=== PATIENT | male | born 1995 | race Caucasian/White ===

== ENCOUNTER 2017-03-24 22:30 | Emergency (ER) | payer SELFPAY ==
[~2017-03-24] VITALS: Ht 180.3 cm; Wt 99.8 kg
[~2017-03-24 22:30] MED LIST: ALBUTEROL SULF8.5 GM INH; FLOVENT DISKUS50 MCG INH; KEFLEX500 MG PO; PREDNISONE20 MG PO
[2017-03-24] MEDS ORDERED: IBUPROFEN IB200 MG PO (22:50)
[2017-03-24] MEDS ORDERED: K-TAB ER20 MEQ PO (22:51)
[2017-03-25] MEDS ORDERED: ZOFRAN ODT4 MG PO (00:52)
[2017-03-25] MEDS ORDERED: PROVENTIL HFA6.7 GM INH (00:55)
== END 2017-03-25 01:11 | disposition home or self-care (01) ==
LOC: ED 22:30
DX: R10.12 Left upper quadrant pain (principal); R10.32 Left lower quadrant pain; J45.909 Unspecified asthma, uncomplicated; I10 Essential (primary) hypertension; Z90.49 Acquired absence of other specified parts of digestive tract; Z88.2 Allergy status to sulfonamides; Z88.5 Allergy status to narcotic agent; Z79.899 Other long term (current) drug therapy
CPT/HCPCS: 74177; 80053; 81001; 83690; 85025; 96361; 96374; 96375; 99284; J2405; J2550; J7030; Q9967

== ENCOUNTER 2020-05-21 23:25 | Emergency (ER) | payer OTHER ==
[~2020-05-21] VITALS: Ht 180.3 cm; Wt 99.8 kg
[~2020-05-21 23:25] MED LIST changes: +IBUPROFEN IB200 MG PO; +K-TAB ER20 MEQ PO; +PROVENTIL HFA6.7 GM INH; +ZOFRAN ODT4 MG PO
[2020-05-22] MEDS ORDERED: LIDODERM1 EACH TOP (01:44)
[2020-05-22] MEDS ORDERED: IBU600 MG PO (01:44)
[2020-05-22] MEDS ORDERED: ONDANSETRON ODT4 MG PO (01:44)
[2020-05-22] MEDS ORDERED: MAPAP500 MG PO (01:44)
== END 2020-05-22 02:04 | disposition home or self-care (01) ==
LOC: ED 23:25
DX: R10.9 Unspecified abdominal pain (principal); R11.2 Nausea with vomiting, unspecified; J45.909 Unspecified asthma, uncomplicated; I10 Essential (primary) hypertension; Z87.891 Personal history of nicotine dependence; Z88.2 Allergy status to sulfonamides; Z88.5 Allergy status to narcotic agent; Z79.899 Other long term (current) drug therapy
CPT/HCPCS: 80053; 81001; 83690; 85025; 96374; 96375; 99284-25; A9270; J1885; J2405; J7121

== ENCOUNTER 2020-06-22 18:10 | Emergency (ER) | payer OTHER ==
[~2020-06-22] VITALS: Ht 180.3 cm; Wt 88.4 kg
[~2020-06-22 18:10] MED LIST changes: +IBU600 MG PO; +LIDODERM1 EACH TOP; +MAPAP500 MG PO; +ONDANSETRON ODT4 MG PO
--- OUTSIDE RECORDS SUMMARY | 2020-06-22 18:14 | XMS ---
PreManage Notification: MAXIMINO HYDE Security Crossing [place]man Events No recent Security Events currently on file CRITERIA MET - [facility] - 2 Visits in 30 Days CARE PROVIDERS There are no care providers on record at this time. Imani has no Care Guidelines for this patient. Yulisa VISIT COUNT (12 MO.) 1 [facility] [place] 3 [facility] TOTAL 4 NOTE: Visits indicate total known visits. ED/C VISIT TRACKING (12 MO.) 06/22/2020 18:11 [facility] [place] TYPE: Emergency COMPLAINT: - WEAKNESS [facility]2020 [facility] DIAGNOSES: - Other chronic pain - Other symptoms and signs involving the musculoskeletal system - Lumbago with sciatica, left side - Back Pain - r/o cuada equina 05/23/2020 07:44 [facility] Orta TYPE: Emergency COMPLAINT: - LOWER BACK PAIN DIAGNOSES: - Allergy status to narcotic agent - Allergy status to sulfonamides - Low back pain - Other symptoms and signs involving the nervous system - Unspecified asthma, uncomplicated - Muscle spasm of back - Essential (primary) hypertension - Other longterm (current) drug therapy - Personal history of nicotine dependence 05/21/2020 23:27 [facility] Or[facility] TYPE: Emergency COMPLAINT: - CHILLS,VOMITING,LT SIDE BACK PAIN DIAGNOSES: - Unspecified asthma, uncomplicated - Personal history of nicotine dependence - Nausea with vomiting, unspecified - Allergy status to sulfonamides - Essential (primary) hypertension - Unspecified abdominal pain - Other longterm (current) drug therapy - Allergy status to narcotic agent INPATIENT VISIT TRACKING (12 MO.) 05/28/2020 05:43 [facility] TYPE: Neurology DIAGNOSES: 22023. Other symptoms and signs involving the musculoskeletal system 69737. Lt LE paresthesia 88070. Other symptoms and signs involving the musculoskeletal system 19193. Difficulty in walking, not elsewhere classified 05/23/2020 12:26 [facility] [place] TYPE: Medical Surgical DIAGNOSES: - Lumbago with sciatica, left side - Other chronic pain - Other symptoms and signs involving the musculoskeletal system [email or web address]
== END 2020-06-22 22:50 | disposition home or self-care (01) ==
LOC: ED 18:10
DX: E86.0 Dehydration (principal); R29.90 Unspecified symptoms and signs involving the nervous system; J45.909 Unspecified asthma, uncomplicated; I10 Essential (primary) hypertension; Z88.2 Allergy status to sulfonamides; Z88.5 Allergy status to narcotic agent
CPT/HCPCS: 51798; 80053; 81001; 83735; 85025; 99284-25; J7030

== ENCOUNTER 2020-06-29 11:44 | Inpatient (IN) | payer OTHER ==
[~2020-06-29] VITALS: Ht 180.3 cm; Wt 84.0 kg
--- OUTSIDE RECORDS SUMMARY | 2020-06-29 11:46 | XMS ---
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 Care History Medical/Surgical 06/23/2020 [facility] - [facility] CALLED PATIENT-PATIENT DOES NOT HAVE A PCP LISTED- - PHONE NUMBER LISTED WENT STRAIGHT TO VOICEMAIL-LEFT A MESSAGE. Yulisa VISIT COUNT (12 MO.) [address] [facility]ines 4 [facility] NOTE: Visits indicate total known visits. ED/UCC VISIT TRACKING (12 MO.) 06/29/2020 11:45 [facility] Orta TYPE: Emergency COMPLAINT: - SWALLOWING PROBLEM 06/22/2020 18:11 [facility] TYPE: Emergency COMPLAINT: - WEAKNESS DIAGNOSES: - Essential (primary) hypertension - Weakness - Allergy status to narcotic agent - Unspecified asthma, uncomplicated - Dehydration - Unspecified symptoms and signs involving the nervous system - Allergy status to sulfonamides 05/23/2020 12:26 [facility] Francheska [place]IT[place] TYPE: Emergency DIAGNOSES: - Other chronic pain - Other symptoms and signs involving the musculoskeletal system - Lumbago with sciatica, left side - Back Pain - r/o tobin panchalina 05/23/2020 07:44 [facility] [place] TYPE: Emergency COMPLAINT: - LOWER BACK PAIN DIAGNOSES: - Allergy status to narcotic agent - Allergy status to sulfonamides - Low back pain - Other symptoms and signs involving the nervous system - Unspecified asthma, uncomplicated - Muscle spasm of back - Allergy status to narcotic agent - Essential (primary) hypertension - Other mcfp (current) drug therapy - Allergy status to sulfonamides - Personal history of nicotine dependence 05/21/2020 23:27 [facility] [place] TYPE: Emergency COMPLAINT: - CHILLS,VOMITING,LT SIDE BACK PAIN DIAGNOSES: - Unspecified asthma, uncomplicated - Personal history of nicotine dependence - Nausea with vomiting, unspecified - Allergy status to sulfonamides - Essential (primary) hypertension - Unspecified abdominal pain - Other rat exterminator (current) drug therapy - Allergy status to narcotic agent - Allergy status to sulfonamides - Allergy status to narcotic agent INPATIENT VISIT TRACKING (12 MO.) 05/28/2020 05:43 [facility] TYPE: Neurology DIAGNOSES: 10592. Other symptoms and signs involving the musculoskeletal system 16778. Lt LE paresthesia 10941. Other symptoms and signs involving the musculoskeletal system 82353. Difficulty in walking, not elsewhere classified [facility]/23/2020 12[facility] DIAGNOSES: - Lumbago with sciatica, left side - Other chronic pain - Other symptoms and signs involving the musculoskeletal system [email or web address]
--- NOTE | 2020-06-29 16:03 | NUR ---
New admit to the floor. Patient arrived alert and oriented x4. Patient on room air, respirations even and non labored. Patient has no distress noted. Patient's VSS. Unable to assess lower ext skin integrity; pt declined to removed pants. Water provided. Pt updated to plan of care. Call light within reach.
--- NOTE | 2020-06-29 18:33 | NUR ---
Mom at bedside visiting with patient. Patient denies needs. Personal supplies and call light within reach. IV fluids infusing without difficulty.
--- NOTE | 2020-06-29 19:04 | NUR ---
PATIENT IN BED, MOM AT BEDSIDE. NO VOID, RN NOTIFIED. BLADDER SCAN DONE UPON RN REQUEST. 626 mL ON SCAN, RN NOTIFIED. VITALS AND I&O'S CHARTED. CALL LIGHT IN REACH. NO FURTHER NEEDS AT THIS TIME.
--- NOTE | 2020-06-29 19:15 | NUR ---
RECEIVED REPORT FROM MARILYNN VELASCO. pt RESTING IN BED WITH MOTHER, CASEY, AT BEDSIDE. pt HAS FLAT AFFECT. DISCUSSED IMPORTANCE OF HYDRATION, ORAL CARE, AND VOIDING. pt VERBALIZED UNDERSTANDING. ANSWERED SEVERAL QUESTIONS FROM MOTHER AND pt. CALL LIGHT WITHIN REACH. WHITEBOARD UPDATED.
--- NOTE | 2020-06-29 19:18 | NUR ---
Dr. Rice made aware that patient has not yet voided on Med-Surg. Patient denies sensation to void at this time. Bladder scan noted to be 626ml. Orders obtained to continue to monitor urinary retention/output and ensure ordered labs are completed here at 8am. labs in place at this time and oncoming RN made aware of plan of care.
--- NOTE | 2020-06-29 19:20 | NUR ---
CHARGE NURSE REPORT RECEIVED. PT IN ROOM WITH FEMALE FRIEND.
--- NOTE | 2020-06-29 19:30 | NUR ---
SPOKE WITH pt AND MOTHER ABOUT IMAGING AND LABS SCHEDULED FOR 1999. ENCOURAGED pt TO VOID. DISCUSSED IMPORTANCE OF PREVENTING BLADDER DAMAGE. pt VERBALIZED UNDERSTANDING. ALL QUESTIONS ANSWERED. MOTHER AT BEDSIDE. CALL LIGHT WITHIN REACH.
--- NOTE | 2020-06-29 19:58 | NUR ---
PT CALLED, WANTED TO KNOW IF HIS FEMALE FRIEND COULD GO TO THE ED AND GET A SODA. PERMISSION GRANTED. NO OTHER NEEDS. AWAITING LABS TO BE DRAWN.
--- NOTE | 2020-06-29 20:28 | NUR ---
LAB INTO DRAW, DIFFICULT LAB DRAW. AFTER DRAW pt UP TO VOID, CALL LIGHT WITHIN REACH. MOTHER AT BEDSIDE.
--- NOTE | 2020-06-29 20:30 | NUR ---
ASSESSMENT DONE. pt HAS A FLAT AFFECT, POLITE. ASKS APPROPRIATE QUESTIONS. pt STATED HE WAS ABLE TO VOID IN THE MORNING BUT WHEN PRESSED FOR DETAILS STATED "I'M NOT SURE, YOU WOULD HAVE TO ASK MY GIRLFRIEND." DENIES FEELING CONFUSED OR FORGETFUL. LUNG SOUNDS CLEAR, HR REGULAR AND TACHY. BOWEL TONES HYPOACTIVE. STEADY ON HIS FEET. HAS SOME WEAKNESS IN LEFT LEG COMPARED TO RIGHT LEG. REPORTS "MY STOMACH FEELS FULL, I FEEL LIKE THERE IS A LUMP IN MY THROAT STOPPING ME FROM SWALLOWING." REPORTS THAT FOOD SOUNDS GOOD AND TASTES NORMAL BUT DOES NOT GO DOWN.
--- NOTE | 2020-06-29 21:09 | NUR ---
BLADDER SCAN DONE FOR 689ML. pt DENIES THE URGE TO VOID AT THIS TIME. MOTHER AT BEDSIDE. CALL LIGHT WITHIN REACH.
--- NOTE | 2020-06-29 21:39 | NUR ---
DR PEREZ NOTIFIED OF THE URINE OUTPUT, INABILITY TO VOID DESPITE SEVERAL ATTEMPTS. BLADDER SCAN AT 2100 PER PT PRIMARY RN, WAS "689". DR PEREZ WOULD LIKE TO BE NOTIFIED IF THE BLADDER SCAN IS 1,000 CC OR MORE.
--- NOTE | 2020-06-29 22:37 | NUR ---
IN TO GIVE POTASSIUM IV. pt COMPLAINED OF BURNING, RATE SLOWED TO ALLOW pt TO TOLERATE INFUSION. CALL LIGHT WITHIN REACH.
--- NOTE | 2020-06-29 22:50 | NUR ---
BLADDER SCANNED SHOW 747 ML. PRIMARY RN SUZIE IS AWARE AND WITH PATIENT.
--- NOTE | 2020-06-29 23:29 | NUR ---
ROUNDED ON pt. DENIED PAIN IN IV ARM. POTASSIUM RATE INCREASED SLIGHTLY. pt ON PHONE WITH VIRAL VILA. ANSWERED QUESTIONS. CALL LIGHT WITHIN REACH.
--- NOTE | 2020-06-30 00:17 | NUR ---
POTASSIUM INFUSION COMPLETED, NEXT BAG HUNG, NEW BAG OF IVF INFUSING. NO CHANGES OR REQUESTS FROM pt. LAYING IN BED, ARMS AT SIDES WITH LIGHT ON. CALL LIGHT WITHIN REACH.
--- NOTE | 2020-06-30 01:32 | NUR ---
IN TO HANG NEXT BAG OF POTASSIUM IV.
--- NOTE | 2020-06-30 02:04 | NUR ---
PATIENT CALLED MANAGER GLOBAL SYSTEM AND REQUESTED RN SUZIE. RN NOTIFIED OF REQUEST.
--- NOTE | 2020-06-30 02:43 | NUR ---
CALL LIGHT ON. POTASSIUM INFUSION COMPLETED. IVF INFUSING PER ORDERS. pt DENIES CHANGES IN ASSESSMENT, NUMBNESS AND TINGLING, WEAKNESS, ETC. NO CHANGES NOTED ON PHYSICAL ASSESSMENT. MOTHER AT BEDSIDE. CALL LIGHT WITHIN REACH.
--- NOTE | 2020-06-30 03:15 | NUR ---
CALL LIGHT ON. IV PUMP BEEPING, ERROR RESOLVED. pt RESTING IN BED. NO REQUESTS AT THIS TIME. CALL LIGHT WITHIN REACH. MOTHER AT BEDSIDE.
--- NOTE | 2020-06-30 06:00 | NUR ---
BLADDER SCANNED SHOWS 714 ML.
--- NOTE | 2020-06-30 06:01 | NUR ---
CALL LIGHT ON. pt CALLED TO REPORT "I'M AWAKE" NO NEEDS AT THIS TIME. LAB INTO DRAW. THIS RN RETURNED TO ROOM WITH LINE TENDER. VITALS RECORDED. pt REPORTS NO CHANGES IN NUMBNESS AND TINGLING OR SENSATION. pt REQUESTED A BLADDER SCAN. DONE 712ML NOTED. pt REPORTED "PRESSURE, NOT IN MY BLADDER BUT OTHER PLACES." DID NOT EXPOUND ON WHERE THIS PRESSURE WAS. WILL ATTEMPT TO PEE AT SOME POINT THIS AM. CALL LIGHT WITHIN REACH. MOTHER AT BEDSIDE.
--- NOTE | 2020-06-30 06:20 | NUR ---
CALL LIGHT ON. pt VOIDED 500ML. VERY DARK URINE. MOTHER AT BEDSIDE. NO REQUESTS AT THIS TIME. CALL LIGHT WITHIN REACH.
--- NOTE | 2020-06-30 07:15 | NUR ---
REPORT RECEIVED FROM MARILYNN LARSEN. PT RESTING IN BED, AWAKE, WITH HEAD OF BED ELEVATED TO 30 DEGREES. PT DENIES PAIN AND NAUSEA. PTS MOTHER AT BEDSIDE. PT DENIES ADDITIONAL REQUESTS OR COMPLAINTS. CALL LIGHT WITHIN REACH. BED RAILSUP.
--- NOTE | 2020-06-30 08:20 | NUR ---
Pt. laying in bed. Breakfast tray brought to room. Pt. not eating. No other needs at this time. call light with in reach
--- NOTE | 2020-06-30 08:38 | NUR ---
MORNING ASSESSMENT DUE. PT RESTING IN BED, AWAKE. PT DENIES PAIN AND NAUSEA. PT ANSWERING QUESTIONS APPROPRIATLY, BUT IS VERY SLOW TO RESPOND, OFTEN LOOKS TO HIS MOTHER TO HELP HIM ANSWER QUESTIONS. PT RERPOTS FEELING "WORSE" THAN YESTERDAY. WHEN ASKED HOW PT REPORTS INCREASED "PINS AND NEEDLE" FEELING TO HIS RIGHT FOOT. WEAKNESS CONTINUES TO LEFT SIDE OF BODY. PT REPORTS NUMBNESS AND "PINS AND NEEDLES" TO BOTH FEET. PT IS ABLE TO IDENTIFY TOES THAT ARE TOUCHED. PT ALSO IDENTFITYS THE "PINS AND NEEDLES" FEELING IN BILATERAL HANDS. DENIES TINGLING IN LIPS OR FACE. PT ENCORUAGED TO GET UP TO CHAIR THIS MORNING. PT DECLINES. PT ENCORUAGED TO AMBULATE, PT STATES "MAYBE LATER." UNABLE TO ASSESS PTS GATE OR HOW STEADY HE IS ON HIS FEET RELATED TO PTS UNWILLINGNESS TO GET OUT OF BED. PT DENIES NEED TO VOID. NOTED THAT PT VOIDED LARGE AMOUTS AT A TIME LAST SHIFT. PTS TOUNGE NOTED TO BE DRY AND PLAQUE COATED. PT ENCORUAGED TO TAKE SIPS OF WATER. SWALLOW EVALUATION DONE. PT SPITS SPOON FULL OF WATER OUT RATHER THAN SWALLOWING IT. PT REPORTS HIS THROAT FEELS "TOO TIGHT" TO SWALLOW WATER. PT DECLINES BREAKFAST/CLEAR LIQUID TRAY. BREAKFAST ORDRED FOR PTS MOTHER/CARGIVER. PT DENIES ADDITIONAL REQUESTS OR COMPLAINTS. BED RAILS UP. CALL LIGHT WITHIN REACH.
--- NOTE | 2020-06-30 09:31 | NUR ---
THIS RN TO ROOM WITH MD FOR ROUNDS. PT REPORTS FULLNESS IN ABDOMEN CONTINUES AND CONFIRMES THAT HE IS HIS NOT ABLE TO TAKE IN FOOD OR LUQUIDS. PT SWALLOWS SMALL SIP OF WATER FOR MD, PT STATES FLUID DOES NOT GO DOWN EASILY. PTS FIANCE ON PHONE DURING EVALUATION. PT, MOTHER, AND FIANCE VERBALIZE UNDERSTANDING OF PLAN OF CARE. PT CONTINUES TO DECLINE TIME UP TO CHAIR OUR TIME OUT OF BED. PT TALKING TO CADENCE STRATTON, ON PHONE. PT DENIES ADDITIONAL REQUESTS OR COMPLAINTS. CALL LIGHT WITHIN REACH. BED RAILS UP. MOTHER AT BEDSIDE.
--- NOTE | 2020-06-30 10:00 | NUR ---
Attempted to speak with pt, he puts phone on speaker with his fiance Aurelia. She answers all questions and request a 4 prong cane. She also answers for pt when I asked if his mouth is sore as per report he is not taking fluid and his mouth is dry. I then asked pt to answer an he stared at me before stating very quietly, "no". Mom enters room and joins discussion and answering questions with Aurelia. I will ask Dr. Rice for PT eval to see if pt will benefit from a cane. Pt plans on dc to RV with family when can be discharged. He and Aurelia are anticipating placement of feeding tube as he states he is unable to tolerate food.
--- NOTE | 2020-06-30 10:15 | NUR ---
Notified by Onel from PT, he evaluated pt and does feel he would benefit from the use of a cane. Dr. Rice notified and requested rx.
--- NOTE | 2020-06-30 10:23 | NUR ---
PHOTOGRAPH EDITOR INFORMS THIS RN THAT PT REQUESTS TO SPEAK TO HIS NURSE. THIS RN TO ROOM. DR. HANSEN AT BEDSIDE TALKING WITH PT ABOUT EGD PROCEEDURE. PT VERBALIZES UNDERSTANDING OF PROCEDURE AND PLAN OF CARE. PT ENCOURGED TO USE URINAL, STATES HE IS UNABLE TO VOID. BLADDER SCAN = 460ML. WILL CONTINUE TO MONITOR. PHYSICAL THERAPY TO BEDSIDE TO WORK WITH PT. NO ADDITIONAL REQUESTS OR QUESTIONS AT THIS TIME.
--- NOTE | 2020-06-30 10:28 | NUR ---
Gave pt. new gown and bath wipes, he did not want help. no other needs at this time.
--- NOTE | 2020-06-30 10:50 | NUR ---
Dr. Pierce stopped by my office following consult. States he declines to place feeding tube surgically. He requests I schedule a psychiatric appt for this pt. I will discuss with Dr. Rice.
--- NOTE | 2020-06-30 11:13 | NUR ---
PT FINISHED WITH PHYSICAL THERAPY AND UP TO CHAIR AT THIS TIME. PT ON PHONE WITH VIRAL VILA. PT HAD MENTIONED "TROUBLE" WITH ANESTHESIA IN THE PAST BUT WAS UNABLE TO GIVE MORE DETAILS STATING THAT "YOU SHOULD TALK TO CADENCE." CADENCE NOW STATES, OVER PHONE, THAT PT "WAS SLOW TO WAKE UP AND HIS BREATHING DEMINISHED." DR. HANSEN AND MIGUEL A BAUGH ([employer] PIPES ASSEMBLER) UPDATED.
--- NOTE | 2020-06-30 12:58 | NUR ---
THIS RN TO ROOM TO CHECK ON PT. PT WORKING WITH MECHANICAL TECHNICIAN. PT ENCOURAGED TO ATTEMPT TO VOID. URINAL PROVIDED. PT UNABLE TO VOID. WILL CONTINUE TO MONITOR. NO ADDITONAL REQUESTS OR COMPLAINTS AT THIS TIME. PT DECLINES LUNCH AND DECLINES WATER OR SIPS OF FLUID. PT REMAINS UP TO CHAIR. CALL LIGHT WITHIN REACH.
--- NOTE | 2020-06-30 13:15 | NUR ---
PT ALERT, SITTING IN CHAIR WITH GOWN ON AND PANTS. PT HAS VERY FALT ASSECT, SLOW TO RESPOND TO QUESTIONS. DID SAY HE HAS NO PAIN, REQUESTED I CLOSE DOOR AND GAVE ME THE IMPRESSION HE HAD SOMETHING TO DISCUSS-BUT DID NOT. FS IN WITH HIS. HE DECLINED, SAYING "I FEEL FULL". PT REMAINS ALMOST FROZEN IN HIS CHAIR, LITTLE TO NO MOVEMENT. GAVE ENOCURAGEMENT, LITTLE RESPONSE. WILL FOLLOW NEEDED
--- NOTE | 2020-06-30 14:33 | NUR ---
AFTERNOON ASSESSMENT DUE. PT RESTING IN BED. ENCORUAGED TO GET UP TO AMBULATE, DECLINES, ENCORUAGED TO GET UP TO CHAIR, DECLINES. PT DENIES PAIN AND NAUSEA. ASSESSMENT DONE: PT REPORTS NUMBNESS AND TINGLING IN HANDS AND FEET IS "THE SAME." WEAKNESS ON LEFT SIDE CONTINUES. LEFT ARM HAS STRONG DATA SECURITY CONSULTANT. PT IS ABLE TO AMBULATE, STEADY ON FEET AND CAN LIFT ARMS AND LEGS OFF OF BED HOLDIGN THEM UP FOR AN EXTENDED PERIOD OF TIME. PT EDUCATION DONE REGARDING VOIDING AND BLADDER SCANS. PT CONTINUES TO DENY NEED TO VOID. PT RECENTLY BLADDER SCANNED FOR 628ML. WILL CONTINUE TO MONITOR PER MD ORDERS. ORAL MUCOSA CONTINUES TO BE DRY WITH PLACE ON TONGUE. ORAL CARE AND SHOWER ENCORUAGED. PT DECLINES. PT AGREEABLE TO PLAN FOR SHOWER IN HALF AN HOUR. NO ADDITIONAL REQUESTS OR COMPLAINTS AT THIS TIME. PT PLAYING ON PHONE. CALL LIGHT WITHIN REACH. BED RAILS UP.
--- NOTE | 2020-06-30 15:14 | NUR ---
Pt. Has used call light, when you go in the room, he doesn't really need anything. He mostly just says thank you when you ask him anything, he occasionally will shake his head yes or no, but seems to be a delayed response time. He has been up sitting in his chair. Pt. still has not voided, has not eaten anything and has not drank anything. no other needs at this time. Call light with in reach
--- NOTE | 2020-06-30 15:43 | NUR ---
THIS RN TO ROOM TO ENCOURAGE PT TO GET UP TO SHOWER. SUPPLIES PROVIDED. IV SALINE LOCKED AND COVERED FOR SHOWER. PT HAS CLOTHES AND SOAP FROM HOME. PT STATES HE IS READY TO SHOWER. PT UP INDEPENDANTLY FOR SHOWER. STEADY ON FEET WITH STAND BY ASSIST. PT DEMONSTRATES USE OF CALL LIGHT. LINENS CHANGED. PT DRESSES SELF. NO ASSISTANCE NEEDED. PT NOTED TO BE ABLE TO STAND ON LEFT LEG WHILE PUTTING ON PANTS AND UNDERWARE WITH NO SUPPORT. PT DECLINES SUPPORT WHEN OFFERED. PT BACK TO BED. BED RAILS UP. CALL LIGHT WITHIN REACH. NO ADDITIONAL REQUESTS OR COMPLAINTS AT THIS TIME.
--- NOTE | 2020-06-30 16:46 | NUR ---
THIS RN TO ROOM TO CHECK ON PT. PT FOUND UP IN RESTROOM CLEANING SKIN COUNTER AND FOLDING TOWELS. RECENT BLADDER SCAN DONE PER ELECTRICAL PROSPECTING OPERATOR NOTED TO BE 690ML. PT CONTINUES TO STATE HE IS UNABLE TO VOID. NEW IV FLUID BAG HUNG. PT RESTING IN BED. NO ADDITIONAL REQUESTS OR COMPLAINTS. EDUCATION DONE WITH PT REGARDING URINARY RETENTION, NPO STATUS AT MIDNIGHT AND PLAN FOR PROCEEDURE TORMORROW. PT VERBALIZES UNDERSTANDING AND STATES HIS QUESITONS HAVE BEEN ANSWERED. NO ADDITIONAL REQUESTS OR COMPLAINTS. CALL LIGHT WITHIN REACH. BED RAILS UP.
--- NOTE | 2020-06-30 17:33 | NUR ---
MD CALLED AND UPDATED REGRADING PTS URINARY STATUS. NO NEW ORDERS AT THIS TIME.
--- NOTE | 2020-06-30 17:40 | NUR ---
PT HERE FOR HYPERNATREMIA. D5 WATER INFUSING. PT UP IN ROOM AND FOR SHOWER WITH STAND BY ASSIST. PT ON CLEAR LIQUID DIET BUT HAS NO PO INTAKE FOR THIS SHFIT. PT HAS VERY FLAT ASPECT THIS SHIFT BUT ANSWERING QUESTIONS APPROPRIATLY. SUGICAL CONSULT ORDERED WITH EGD PLANNED FOR TOMORROW. PT TO BE NPO AT MIDNIGHT. PT HAS NOT VOIDED YET THIS SHIFT. BLADDER SCANED PER MD ORDER. MD AWARE OF URINARY STATUS. PT CONNECTED WITH FAMILY, MOTHER AT BEDSIDE FOR PART OF SHIFT AND PT ON PHONE WITH FIANCE THROUGHT SHIFT. PT USES CALL LIGHT APPROPRIATLY.
--- NOTE | 2020-06-30 18:28 | NUR ---
THIS RN TO ROOM TO CHECK ON PT. PT RESTING IN BED. LAB RECENTLY TO BEDSIDE FOR LAB DRAW. PT DENIES REQUESTS OR COMPALINTS. BS = 761. PT CONTINUES TO DENY NEED TO VOID. PT DECLINES DINNER. CALL LIGHT WITHIN REACH. BED RAILS UP.
--- NOTE | 2020-06-30 19:15 | NUR ---
RECEIVED REPORT FROM MARILYNN FIELD. pt RESTING IN BED. ONE WORD ANSWERS ONLY. MOTHER AT BEDSIDE. NO REQUESTS AT THIS TIME. CALL LIGHT WITHIN REACH.
--- NOTE | 2020-06-30 20:30 | NUR ---
IN TO GIVE POTASSIUM. UPDATED pt AND MOTHER, CASEY ON LAB VALUES AND TREATMENT PLAN. ALL QUESTIONS ANSWERED. CALL LIGHT WITHIN REACH.
--- NOTE | 2020-06-30 20:57 | NUR ---
CALL LIGHT ANSWERED. PATIENT WENT TO THE BATHROOM AND VOIDED 290 ML DARK TEA COLORED. CUP OF ICE PROVIDED FOR MOTHER.
--- NOTE | 2020-06-30 21:46 | NUR ---
IN TO DO ASSESSMENT. SECOND BAG OF POTASSIUM INFUSING. BOLUS FINISHING AT THIS TIME. pt STATES "NO CHANGES" DENIES PAIN. COMPLAINS OF WEAKNESS ON LEFT SIDE AND TINGLING IN ALL EXTREMITIES. PHYSICAL ASSESSMENT DONE. SLIGHT WEAKNESS NOTED WITH NEUROS ON LEFT SIDE. MOTHER AT BEDSIDE. QUESTIONS ANSWERED. pt REMAINS FLAT AND DOES NOT ANSWER QUESTIONS WITH MORE THAN ONE WORD ANSWERS UNLESS PRESSED. NO REQUESTS AT THIS TIME. CALL LIGHT WITHIN REACH.
--- NOTE | 2020-06-30 23:27 | NUR ---
MOTHER TALKED TO THIS RN ABOUT pt. REPORTED CONCERNS ABOUT THE pt NOT RESPONDING TO QUESTIONS. "HE JUST SEEMS REALLY OUT IT." pt LOST HIS JOB FROM THE PANDEMIC, HIS GIRLFRIEND HAD A COUPLE KIDS MOVE HOME. THEY HAD TO MOVE TO A TRAILER. ONE WEEK PRIOR TO THIS STARTING THE pt FOUND A NEW JOB. THEN THE pt SPENT JAMAR IN THE HOSPITAL AT [place]. CASEY EXPRESSED CONCERN ABOUT THE pt's DECLINE. REASSURED WE WILL CALL IF ANYTHING CHANGES. CASEY'S PHONE NUMBER IS ON THE BOARD.
--- NOTE | 2020-07-01 00:02 | NUR ---
IN TO GIVE LAST BAG OF POTASSIUM. pt RESTING IN BED WITH EYES CLOSED, RESPIRATIONS REGULAR AND UNLABORED. CALL LIGHT WITHIN REACH.
--- NOTE | 2020-07-01 01:05 | NUR ---
CALL LIGHT ON. IV POTASSIUM COMPLETED. pt STATED "I NEED TO USE THE BATHROOM." REFUSED TO GET UP. URINAL IN HAND. CALL LIGHT WITHIN REACH.
--- NOTE | 2020-07-01 03:26 | NUR ---
ROUNDED ON pt. RESTING IN BED WITH EYES CLOSED, RESPIRATIONS REGULAR AND UNLABORED. URINAL FULL, EMPTIED. CALL LIGHT WITHIN REACH.
--- NOTE | 2020-07-01 05:47 | NUR ---
LAB FINISHED WITH DRAW. pt RESTING IN BED AWAKE. ASSESSMENT DONE. pt ONLY GAVE ONE WORD ANSWERS UNTIL THE END. ASKED QUESTIONS ABOUT PROCEDURE TIME AND WHAT WOULD HAPPEN. QUESTIONS ANSWERED. VITALS AND I&O RECORDED. NO FURTHER REQUESTS AT THIS TIME. CALL LIGHT WITHIN REACH.
--- NOTE | 2020-07-01 07:00 | NUR ---
PRE OP RN CALLED TO STATE THEY WILL SECRETARY OFFICE CLERK PT FOR PROCEEDURE AT 0730. THIS RN TO ROOM TO DO PRE-OP CHECK LIST AND HAND FLUIDS PER OR ORDERS. REPORT RECEIVED FROM SUZIE SUBRAMANIAN. PT RESTING IN BED AND STATES HE HAS NO QUESTIONS ABOUT THE EGE PROCEDURE. PRE OP CHECK LIST COMPLETE. PT DENIES ADDITIONAL REQUESTS OR COMPLAINTS. CALL LIGHT WITHIN REACH.
--- NOTE | 2020-07-01 07:18 | NUR ---
MORNING ASSESSMENT DUE. PT CONTINUES RESTING ON BACK WITH HEAD OF BED ELEVATED TO 30 DEGREES. PT DENIES PAIN AND NAUSEA. PT MOSTLY ANSWERING QUESTIONS WITH ONE WORD RESPONSES AND GESTURES. PT REPORTS "PINS AND NEEDLES" FEELING CONTINUES IN HANDS AND FEET AND IS THE "SAME" YESTERDAY. PT CONTINUES TO REPORTS WEAKNESS ON LEFT SIDE OF BODY, PT ABLE TO AMBULATE, STEADY ON FEET. PT REPORTS HE IS UNABLE TO SWALLOW BECAUSE OF A "BAD TASTE" MOUTH NOTED TO HAVE PLAQUE AND BUILD UP OF SALIVA. ORAL CARE ENCORUAGED. PT DECLINES ALL ORAL CARE. PT DENIES NEED TO VOID AT THIS TIME. NOTED THAT PT VOIDED EARLY THIS MORNING. PT REFUSES ASSESSMENT OF REPRODUCTIVE SYSTEM AND JUAN DAVID AREA. PT TAKES CONSIDERABLE TIME TO ANSWER QUESTIONS, OFTEN A 10-20 SECOND DELAY BEFORE PT RESPONDS TO A QUESTION. PT UPDATED ON PLAN OF CARE, EGD PROCEEDURE, AND FEEDING TUBE PLACEMENT. PT SHAKES HIS HEAD "NO" WHEN ASKED IF HE HAS AND QUESTIONS. RILEY FROM OR ARRIVES TO TAKE PT FOR PROCEEDURE. PT TRANSFERS SELF TO STRETCHER. REPORT GIVEN TO RILEY. RILEY STATES NOT TO SEND POTASSIUM DOSE WITH PT TO PROCEEDURE. WILL ADMINISTER POTASSIUM WHEN PT HAS RETURNED. PT OFF OF FLOOR FOR PROCEEDURE.
--- NOTE | 2020-07-01 07:21 | CONS ---
[facility] [address], [place] [address] Signed DATE OF CONSULTATION: 06/30/2020 CHIEF COMPLAINT: Anorexia and dysphagia. HISTORY OF PRESENT ILLNESS: Eliot is a 25-year-old young man, who apparently has a life partner, Aurelia. They have three children. It sounds like they are in between jobs. He is not able to provide really any information. He has a very decreased affect. Both to what I was able to gather was from Dr. Rice and the chart. It sounds like maybe they were in the [place] and/or [place] and moved over to this area. He had been up at [facility] in [place], [place]. He was complaining of weakness of his left leg. He ended up at [facility]. He was evaluated by the neurologist. Nothing organic was uncovered. 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 He had been allowed to come home. To our knowledge, he has not seen a psychiatrist. He has not eaten or drank anything in the last two weeks. He was complaining of some abdominal fullness. His primary care provider here in [place] asked him to come to our local emergency room. In the emergency room, he does not appear to be systemically ill or toxic in any way. All his laboratory work was elevated including the sodium; however, the CRP and sed rate were all negative. COVID was negative. His exam is completely benign except for a very slow affect. He was admitted to the Internal Medicine Service. He is being hydrated with D5W. His sodium is starting to correct. Chest x-ray and CT scan of the abdomen and pelvis have been unremarkable. I have been asked to see him as a general surgeon on-call for consideration of upper endoscopy and placement of a nasoenteric feeding tube. He has discussed this already with Dr. Rice, and again with myself and seems agreeable to that. We did try to reach his fianceeAurelia on his phone today, it went through to her voicemail. PAST MEDICAL HISTORY: Asthma, Arnold-Chiari, hypertension, lactose intolerance, and headaches. PAST SURGICAL HISTORY: Includes right lower quadrant open appendectomy, right inguinal hernia surgery, and right shoulder surgery. SOCIAL HISTORY: He quit smoking and drinking months ago. He is in between jobs. He has a fianceeAurelia, and three children Dr. Sanford Pardo is his primary care provider, he prefers the [facility]. Shanell Hyde is his mother at . FAMILY HISTORY: He is unable to give me any family history. Electronically Signed By: ALISON HANSEN MD 07/01/20 0721 PATIENT NAME: ELIOT HYDE CONSULTATION DATE OF : [birth year] REPORT #: [id number] PHYSICIAN: ALISON HANSEN MD PCP: SANFORD PARDO MD REPORT IS CONFIDENTIAL AND NOT TO BE RELEASED WITHOUT AUTHORIZATION [address] [address] Signed REVIEW OF SYSTEMS: He said he is very slow to wake up from anesthesia, and he thinks he was given Benadryl once after anesthesia. He said he would check with his paradisee in that regard. ALLERGIES: Iodinated contrast, sulfa, and morphine. MEDICATIONS: None. PHYSICAL EXAMINATION: VITAL SIGNS: His blood pressure 120/75, heart rate 64, respiratory rate is 18, temperature is 97.5, and he is 100% on room air. He is 5 feet 11 inches, 84 kg. GENERAL: Eliot is a 25-year-old gentleman, sitting supine, semi-recumbent in his hospital bed. His nurse, Ellie is with us. He has very slow affect. His eye contact is moderate. LUNGS: Generally clear to auscultation bilaterally. HEART: Regular rate and rhythm, without murmurs. ABDOMEN: Soft, flat, nontender. LABORATORY DATA: His white blood cell count was 19, is down to 12.3; neutrophils are 66. Sodium is 163, it is down to 157. His BUN and creatinine have improved and are now 31 and 0.99. Liver function tests are negative. Albumin is 4. CRP was 2.6. Sedimentation rate was 2. His COVID test is negative. RADIOGRAPHIC STUDIES: Chest x-ray and his CT scan of abdomen and pelvis are both negative. ASSESSMENT/PLAN: Eliot is a 25-year-old gentleman, who presents as above. He likely has a conversion disorder. Unfortunately, he dehydrated with hypernatremia secondary to anorexia, dysphagia, and generalized abdominal pain or fullness. I have been asked by the Internal Medicine Service to perform an upper endoscopy to make sure there is nothing organic along with his esophagus or stomach. Of course, we would take routine biopsies at that time. While he is sedated, I have been asked to place a nasoenteric feeding tube as well. I reviewed that in detail with Eliot and he seems to understand and has consented. Again, we were unable to reach his flores Moses on his phone. We will talk with our anesthesia providers with respect guards to the sodium levels. Maybe we can do this tomorrow or the next day. In the meantime, we will ask our database modeler to see him for recommendations for the enteric tube feeds. He has expressed understanding and agrees with the above plan. I have discussed this with Eliot, our nurse Ellie, and Dr. Rony Rice. Electronically Signed By: ALISON HANSEN MD 07/01/20 0721 PATIENT NAME: ELIOT HYDE CONSULTATION DATE OF : [birth year] REPORT #: [id number] PHYSICIAN: ALISON HANSEN MD PCP: SANFORD PARDO MD REPORT IS CONFIDENTIAL AND NOT TO BE RELEASED WITHOUT AUTHORIZATION [address] [address] Signed MD DOUGLAS Funez/HAROON /[id number] Copies: ~ Electronically Signed By: ALISON HANSEN MD 07/01/20 0721 PATIENT NAME: ELIOT HYDE CONSULTATION DATE OF : [birth year] REPORT #: [id number] PHYSICIAN: ALISON HANSEN MD PCP: SANFORD PARDO MD REPORT IS CONFIDENTIAL AND NOT TO BE RELEASED WITHOUT AUTHORIZATION
--- NOTE | 2020-07-01 09:10 | NUR ---
Pt gone from room.
--- NOTE | 2020-07-01 09:33 | NUR ---
PT BACK FROM PACU VIA STRETCHER ABLE TO SELF TRANSFER TO BED. PT IS ALERT ANSWERS QUESTIONS APPROPRIATELY. AGREES HE IS COMFORTABLE. MOM IS PRESENT IN THE ROOM, PT NOT TALKATIVE. NG TUBE IS IN PLACE AT 53 CM STYLET REMAINS IN PLACE. PT CAUTIONED TO NOT DISLODGE THE TUBE, UNDERSTANDING VERBALIZED
--- NOTE | 2020-07-01 09:44 | NUR ---
07/01/20 0944 Nicole Rincon 0830 PT ARRIVED IN PACU NON RESPONSIVE TO NOXIOUS STIMULI WITH OPA IN PLACED. CHIN LIFT HELD BY RN. 0835 PCXR DONE FOR FEEDING TUBE PLACEMENT. ANESTHESIA REMOVED OPA. CHIN LIFT HELD BY RN. 0840 DR ASKED FOR FEEDING TUBE TO BE ADVANCED FROM 50CM TO 53CM AND REPEAT XRAY. PCXR DONE. 0845 DR AT BEDSIDE. PORTABLE XRAY TAKEN OF NECK TO CHECK FOR COILING OF FEEDING TUBE. OK WITH XRAY, BUT WANTS DR CISNEROS TO READ BEFORE REMOVING STYLET FROM TUBING. 0850 PT ABLE TO MAINTAIN OWN AIRWAY WITHOUT CHIN LIFT. REACTIVE TO VERBAL STIMULI OPENING EYES WHEN ASKED. 0900 PT SLEEPY WITH NO C/O'S. 0915 VOIDED 300ML OF CLEAR KIRK URINE. 0930 TO ROOM 114. REPORT GIVEN TO RN. PT'S CELL PHONE RETURNED TO HIM.
--- NOTE | 2020-07-01 09:56 | NUR ---
PT RETURNED FROM PACU, WAS TRANSFERED TO BED AND INITIAL VITALS TAKEN BY MARILYNN HILL. REPORT RECEIVED FROM MARILYNN HILL. THIS RN TO ROOM FOR ASSESSMENT AND MEDICATION ADMINISTRATION. VITALS SIGNS TAKEN, STABLE, WITH O2 SATURATION NOTED TO BE 100% ON ROOM AIR. POTASSIUM INFUSION STARTED (SEE MAR). PT DENIES PAIN AND NAUSEA. PTS FIANCE ON PHONE AND STATED THAT "BEFORE ALL THIS STARTED HE HAD SOME BLOOD IN HIS STOOL." WHEN ASKED TO CLARIFY CADENCE STATES IT WAS BRIGHT RED BLOOD AND CADENCE CONFIRMS THAT PT HAS A HISTORY OF HEMORROIDS. ASSESSMENT DONE: PT CONTINUES TO REPORT "PINS AND NEEDLES" FEELIGN IN HANDS AND FEET. PT ALSO CONTINUES TO BE VERY SLOW TO RESPOND. NOT USING WORDS AT THIS TIME BUT ONLY GESTURES. PT WILL GESTURE TO HIS MOTHER TO ANSWER QUESTIONS WHEN RESPONSES REQUIRE MORE WORDS. PT ABLE TO SIT UP AND STAND INDEPENDANTLY, STEADY ON FEET AT THIS TIME. NG FEEDING TUBE IN PLACE AT 53CM SEEN AT EDGE OF NOSTRIL. AWAITING MD CONFIRMATION THAT NG TUBE IS OK TO USE, STILET REMAINS IN PLACE PER MD UNTIL CONFIRMATION OF PLACEMENT CAN BE CONFIRMED. PT ENCORUAGED TO VOID, PT DECLINES, WILL CONTINUE TO MONITOR. PT CONTINUES TO DELINE ASSESSMENT OF REPRODUCTIVE SYSTEM. PT RESTING IN BED WITH HEAD OF BED ELEVATED TO 30 DEGREES. PT DENIES REQUESTS OR COMPLAINTS. CALL LIGHT WITHIN REACH. PTS MOTHER AT BEDSIDE.
--- NOTE | 2020-07-01 10:38 | OR ---
[facility] [address], [place] [address] Signed DATE OF OPERATION: 07/01/2020 SURGEON: Alsion Hansen MD PREOPERATIVE DIAGNOSES: 1. Anorexia. 2. Esophageal dysphagia. POSTOPERATIVE DIAGNOSIS: Mild to moderate distal gastroduodenitis. PROCEDURES: 1. Esophagogastroduodenoscopy with CLOtest and biopsies of the second portion of the duodenum, the duodenal bulb, antrum, gastroesophageal junction, distal esophagus, and midesophagus. 2. Placement of nasoenteric feeding tube. FINDINGS: No hiatal hernia. No ulcers. ESTIMATED BLOOD LOSS: None. INDICATIONS: Eliot is a 25-year-old gentleman who apparently has a lifelong fiance with three children. They moved from [place] over to [place] I think for employment reasons. He was having trouble with left leg weakness and ended up at [facility] in [place], [place]. He was sent [facility] to the Neurology Service. It was felt he probably had a functional disorder. He was discharged back to home. He presented to our emergency room with about two weeks of anorexia and therefore dehydration with acute kidney injury and hypernatremia. He was admitted to the Internal Medicine Service. He has been given D5W with improvement in his sodium levels. He has had his blood work and all have been negative including the COVID virus as well as the CRP and the sedimentation rate. I have been asked to see him as a general surgeon on-call for consideration of upper endoscopy with respect to the anorexia and his esophageal dysphagia. Also he consented for a nasoenteric feeding tube. I had reviewed with Eliot the nature of the upper endoscopy along with its risks including, but not limited to gas, bloating, crampy abdominal pain, bleeding, perforation requiring surgery, and missed diagnosis. We had also reviewed the nasoenteric feeding tube in detail. We tried to contact his fiance on his phone, but it Electronically Signed By: ALISON HANSEN MD 07/01/20 1038 PATIENT NAME: ELIOT HYDE OPERATIVE REPORT DATE OF : [birth year] REPORT #: [id number] PHYSICIAN: ALISON HANSEN MD PCP: SANFORD PARDO MD REPORT IS CONFIDENTIAL AND NOT TO BE RELEASED WITHOUT AUTHORIZATION [facility] [address], [place] [address] Signed went to her mailbox. Today, he told me he has not talked to her yet and he told me he did not want me to talk to her before or after the procedure. He had consented and wished to proceed. PROCEDURE NOTE: Eliot was taken into our endoscopy suite and placed in a supine semi-recumbent position. He was given IV sedation per our nurse animal park code enforcement officer. A bite block was utilized for the case. The adult gastroscope was introduced and advanced under direct visualization of camera. He had dry phlegm in his posterior oropharynx. The vocal cords were unremarkable. The scope passed readily down the esophagus through the stomach and into the duodenum. The duodenum was unremarkable. We went ahead and took a biopsy of the duodenum for pathologic review. However, the duodenal bulb and antrum showed moderate to mild diffuse gastritis. No obvious ulcerations. We took biopsies out of the duodenal bulb as well as the antrum for pathologic review. Additional biopsy came out of the antrum for CLOtest. Upon retroflexion of scope, we do not see a hiatal hernia. The scope was withdrawn up through the GE junction, which was compliant without stricture. He had minimal irritation around the Z-line. Consequently, we took a biopsy at the level of the Z-line. We saw no Grajeda's mucosa, no distal, middle or upper esophagitis, however, because of the history of dysphagia, we went and took a biopsy of the distal esophagus as well as the middle esophagus. The scope was then completely withdrawn. After this, we introduced the nasoenteric feeding tube into his left naris and with our gastroscope in the posterior oropharynx, we watched it directly go down his esophagus and out in to the stomach. We did not advance the scope in and out at that point. We were very confident in its location. We are going to check an abdominal x-ray in our recovery room. After this, the nasoenteric feeding tube was secured to his nose with tape. He was awakened from his anesthesia and taken in the recovery room in stable condition. Alison Hansen MD ALB/MODL /[id number] cc: MD Sanford Funez MD Electronically Signed By: ALISON HANSEN MD 07/01/20 1038 PATIENT NAME: ELIOT HYDE OPERATIVE REPORT DATE OF : [birth year] REPORT #: [id number] PHYSICIAN: ALISON HANSEN MD PCP: SANFORD PARDO MD REPORT IS CONFIDENTIAL AND NOT TO BE RELEASED WITHOUT AUTHORIZATION [facility] [address] [place] [address] [facility] Copies: ALISON HANSEN MD, ROBERT D DMD ~ Electronically Signed By: ALISON HANSEN MD 07/01/20 1038 PATIENT NAME: ELIOT HYDE OPERATIVE REPORT DATE OF : [birth year] REPORT #: [id number] PHYSICIAN: ALISON HANSEN MD PCP: SANFORD PARDO MD REPORT IS CONFIDENTIAL AND NOT TO BE RELEASED WITHOUT AUTHORIZATION
--- NOTE | 2020-07-01 11:08 | NUR ---
VITALS DUE. THIS RN TO ROOM TO CHECK ON PT. PT CONTINUES RESTING IN BED WITH HEAD OF BED ELEVATED TO 30 DEGREES. PT RESPONDS TO QUESITONS WITH HEAD SHAKE OR NOD BUT IS NOT INTERACTING WITH WORDS OR SENTENCES. PT DENIES PAIN AND NAUSEA BY SHAKING HEAD WHEN ASKED. PT HAS VOIDED 375ML DARK YELLOW URINE INTO URINAL. IV REMAINS WNL, NO PAIN REDNESS OR SWELLING NOTED. PT DENIES ADDITIONAL REQUESTS OR COMPLAINTS. MOTHER AT BEDSIDE. CALL LIGHT WITHIN REACH.
--- NOTE | 2020-07-01 12:00 | NUR ---
VITALS DUE, NEW ORDERS FOR TUBE FEEDING. FEEDING TUBE FLUSHED WITH 20ML TAP WATER. FLUSHES EASILY. 1 CARTON JEVITY 1.5, 237ML GIVEN THROUGH FEEDING TUBE. PT TOLERATED WITH OUT NAUSEA. PT COUGHS X2 AND TEARFUL STATING THERE IS "STILL SOMETHING IN MY THROAT." PT CONVINCED THAT HE CANNOT SWALLOW THE FOOD. PT EDUCATION DONE REGARDING TUBE FEEDING AND WHERE TUBE ENDS. PTS MOTHER STATES "I THINK IT IS IN HIS HEAD EVERY SINCE [facility] AND THAT'S WHY HE THINKS HE CAN'T SWOLLOW IT." TUBE FEEDING EDUCATION DONE WITH PT AND MOTHER. WILL TRY ADDITIONAL CARTON AFTER PT HAS TIME TO ADJUST AFTER FIRST CARTON. PT DENIES PAIN AND NAUSEA. NO ADDIITONAL REQUESTS OR COMPLAINTS AT THIS TIME. STATING "I FEEL FINE." CALL LIGHT WITHIN REACH.
--- NOTE | 2020-07-01 12:54 | NUR ---
PATIENT SITTING UP IN CHAIR, VITALS CHARTED BY RN. CALL LIGHT IN REACH
--- NOTE | 2020-07-01 13:30 | NUR ---
ADDIITONAL TUBE FEEDING DUE. 2ND CARTON OF JEVITY 1.5, 237ML GIVEN THROUGH FEEDING TUBE. PT TOLERATED WELL WITH NO NAUSEA. PT REPORTS "FEELING FULL" AND STATES HE HAS BEEN FEELING FULL SINCE HE ARRIVED TO THE HOSPITAL. PT ALSO CONTINUES TO COMPLAIN ABOUT "SOMTHING IN MY THROAT" INDICATING THAT HE CANNOT SWALLOW FOOD. AFTER FEEDING. LINE FLUSHED WITH 50ML TAP WATER. PT REMAINS UP TO CHAIR. NO ADDITIONAL REQUESTS OR COMPLAINTS. CALL LIGHT WITHIN REACH.
--- NOTE | 2020-07-01 14:00 | NUR ---
AFTERNOON ASSESSMENT DUE. PT REMAINS UP TO CHAIR. PT DENIES PAIN AND NASUEA AND REPORTS FEELING "FULL." ASSESSMENT DONE: PT CONTINUES TO REPORTS "PINS AND NEEDLES" IN HIS HANDS AND FEET WELL WEAKNESS TO LEFT SIDE. PT STEADY ON FEET AND ABLE TO AMBULATE INDEPENDANTLY. PT REPORTS SYMPTOMS ARE THE "SAME" AND STATES NOTHING FEELS DIFFERENT FROM THIS MORNING. BOWEL TONES NOW ACTIVE. FEEDING TUBE CLAMPED AT THIS TIME. PT VOIDING QUANTITY SUFFICIENT AT THIS TIME WITH MULTIPLE CONCENTRATED YELLOW VOIDS NOTED. PT CONTINUES TO DECLINE ASSESSMENT OF REPRODUCTIVE SYSTEM. ORAL CARE ENCORUAGED, PT DECLINES. PT DENIES ADDITONAL REQUESTS OR COMPLAINTS. CALL LIGHT WIHTIN REACH. MOTHER AT BEDSIDE.
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
--- NOTE | 2020-07-01 16:01 | NUR ---
THIS RN TO ROOM TO CHECK ON PT. PT RELUCTANT TO GET UP WITH PHYSICAL THERAPY TO AMBULATE. PT ENCORUAGED TO AMBULATE AND ASSISTED UP BY THIS RN . PT AMBULATING IN [place] WITH LINA, PHYSICAL THERAPY, STEADY ON FEET. PT DENIES PAIN AND NAUSEA. MOTHER WALKING WITH PT. NO ADDITIONAL REQUESTS OR COMPLAINTS.
--- NOTE | 2020-07-01 16:09 | NUR ---
PT HERE FOR HYPERNATREMIA. SODIUM LEVELS IMPROVING THIS SHIFT. POTASSIUM RIDER GIVEN. PT UP IN ROOM AND TO AMBULATE WITH PHYSICAL THERAPY WITH STAND BY ASSIST THIS SHIFT. PT HAS TAKEN NOTHING PO THIS SHIFT. EGD COMPLETED THIS MORNING. FEEDING TUBE PLACED, SECURED AT 53CM AT NASAL OPENING. PT STARTED ON JEVITY 1.5 BOLUS FEEDS AT LUNCH AND DINNER, TOLERATING WELL WITH NO NAUSEA. PT DENIES PAIN THIS SHIFT. "PINS AND NEEDLES" FEELING CONTINUES IN PTS HANDS AND FEET. PT CONTINUES TO REPORT DIFFICTULY SWALLOWING AND "FULL" FEELING IN ABDOMEN. PT VOIDING QUANTITY SUFFICIENT THIS SHIFT. PTS MOTHER AT BEDSIDE FOR MOST OF SHIFT. PT USES CALL LIGHT APPROPRATILY.
--- NOTE | 2020-07-01 16:52 | NUR ---
THIS RN TO ROOM TO CHECK ON PT. PUMP ALARMING. IV FLUIDS COMPLETE. NEW IV FLUID BAG HUNG. PT DENIES PAIN AND NAUSEA. PT RESTING IN BED WITH HEAD OF BED ELEVATED TO 30 DEGREES, PLAYING ON PHONE. PT HAS VOIDED AN ADDITIONAL 500ML CONCENTRATED YELLOW URINE. PT EDUCATION DONE REGARDING NEXT TUBE FEEDING. PT NODS HEAD IN UNDERSTANDING. PT DENIES ADDITIONAL REQUESTS OR COMPALINTS. CALL LIGHT WITHIN REACH. BED RAILS UP.
--- NOTE | 2020-07-01 17:34 | NUR ---
PATIENT AWAKE IN CHAIR. RN PROVIDING TUBE NURISHMENT. VITALS AND I&OS CHARTED. CALL LIGHT IN REACH, NO OTHER NEEDS AT THIS TIME
--- NOTE | 2020-07-01 17:57 | NUR ---
EVENING TUBE FEEDING DUE. THIS RN TO ROOM. 1 CARTON JEVITY 1.5, 237ML, GIVEN. PT HAS UNMEASURED EMESIS EPISODE OF ~100ML. PT DENIES NASUEA, EMESIS SUDDEN AND UNEXPECTED. TUBE FEEDING STOPPED. PT UP TO SHOWER, INDEPENDANT AND STEADY ON FEET. CONVERSTATION WITH PT DURINT TUBE FEEDING INTERMITTANT. PT ASKED ABOUT HIS JOB AND FAMILY AND ONLY RESPONDS "WHY DO YOU WANT TO KNOW?" DOES NOT ANSWER QUESTIONS ABOUT WORK, FAMILY, OR INTERESTES. PT CONTINUES TO HAVE DIFFICULTY WITH SELF CARES. WILL NOT TURN ON SKIN INDEPENDANTLY, ASKS FOR MOTHERS ASSISTANCE. WHILE UP TO SHOWER, PT REPORTS HE THINKS HE NEEDS TO HAVE A BOWEL MOVEMENT. PTS MOTHER REPORTS "THIS IS LIKE WHEN IT FIRST STARTED. WHEN HE WAS HAVING TROUBLE KNOWING WHEN HE HAD TO GO POOP HE WOULD VOMIT." PTS MOTHER AFIRMS THAT SHE THINKS THE EMESIS WAS RELATED TO THE NEED FOR A BOWEL MOVEMENT RATHER THAN THE TUBE FEEDING. WILL ATTEMPT A SECOND TUBE FEEDING CARTON LATER THIS EVENING. PT REMAINS UP TO RESTROOM. PT DEMONSTRATES USE OF CALL LIGHT. MOTHER IN ROOM WITH PT.
--- NOTE | 2020-07-01 18:50 | NUR ---
THIS RN TO ROOM TO CHECK ON PT. PT REPORTS HE DID NOT WANT TO SHOWER AND DID A WIPE DOWN INSTEADY. PT REPORTS HE HAD A BOWEL MOVEMENT AND CONFIRMES THAT HE THINK THE NAUSEA/EMEMSIS WAS RELATED TO NEEDING TO HAVE A BOWEL MOVEMENT. PT RPEORTS HE WOULD LIKE TO HAVE THE 2ND CONTAINER OF JEVITY 1.5 NOW RATHER THAN WAITING. RESIDUAL CHECKED, NO RESIUAL NOTED. 0.5 CONTAINER OF JEVITY 1.5 GIVEN. PT HAS EMEISIS EXPISODE AGAIN AFTER 1/2 A CONTINER. 200ML YELLOW EMESIS NOTED. PT DENIES FEELING DIFFERENT OR BETTER AFTER THE EMESIS. FEEDING STOPPED. GOWN AND SOCKS CHANGED. ORAL CARE DONE PER PT. NO ADDITIONAL REQEUSTS OR COMPLAITNS AT THIS TIME. REPORT GIVEN TO EVENING RN. PT UP TO CHAIR WITH MOTHER AT BEDSIDE. CALL LIGHT WITHIN REACH.
--- NOTE | 2020-07-01 19:53 | NUR ---
PATIENT ON THE PHONE WITH GIRLFRIEND, NO NEEDS AT THIS TIME, CALL LIGHT IN REACH, PATIENT'S MOTHER STEPPED OUT FOR A FEW MINUTES.
--- NOTE | 2020-07-01 20:27 | NUR ---
TALKED WITH ABOUT PATIENT VOMITING THE LAST 2 FEEDS. SAID FOR NOW LEAVE THE IV FLUIDS AT 125MLS/HR AND START A TRICKLE FEED AT 10MLS/HR FOR NOW. THESE WE VERBAL ORDERS WHEN WALKED THROUGH THE UNIT.
--- NOTE | 2020-07-01 22:27 | NUR ---
PATIENT IN BED WATCHING TV WHEN THIS NITROGEN OPERATOR ENTERED ROOM. I ASKED PATIENT IF HE PREFERS TO BE CALLED MAXIMINO OR BRENDA AND PATIENT RESPONDED "BRENDA". WHITE BOARD UPDATED IN ROOM. VIATLS AND I&O COMPLETED. PATIENT DENIES ANY FUTHER NEEDS AT THIS TIME. MOM IN ROOM. CALL LIGHT IN REACH.
--- NOTE | 2020-07-01 22:28 | NUR ---
PATIENT STARTED ON CONTINUOUS TRICKLE FEEDING AT PER FEEDING TUBE AT 10MLS/HR OF JEVITY 1.5 CALORIE WITH FIBER. PATIENT MIGHT SAY YES OR NOW, DOESM'T REALLY ACKNOWLEDGE STAFF IS IN THE ROOM. PATIENT'S MOTHER AT BEDSIDE. PATIENT DENIES NAUSEA OR PAIN WITH A "NO" ANSWER. NO NEEDS AT THIS TIME. CALL LIGHT IN REACH, PATIENT WATCHING TV.
--- NOTE | 2020-07-02 00:30 | NUR ---
PATIENT RESTING QUIETLY IN LOW FOWLERS POSITION, EYES CLOSED, RESPIRATIONS REGULAR AND EVEN, CALL LIGHT IN REACH.
--- NOTE | 2020-07-02 02:19 | NUR ---
PATIENT RESTING QUIETLY, CALL LIGHT IN REACH, RESPIRATIONS REGULAR AND EVEN, EYES, CLOSED.
--- NOTE | 2020-07-02 03:05 | NUR ---
PATIENT CALLED AND NEEDED HIS URINAL DUMPED AND THIS WAS DONE. NO OTHER NEEDS AT THIS TIME, CALL LIGHT IN REACH.
--- NOTE | 2020-07-02 05:15 | NUR ---
PATIENT HAS APPEARED TO HAVE SLEPT WELL MOST THE NIGHT, HE HAS CALLED AND ASKED FOR THIS NURSE TO COME AND EMPTY HIS URINAL WHEN HE HAS USED IT, WHICH LOOKS TO BE THE MOST VERBAL COMMUNICATION PATIENT HAS HAD WITH STAFF. PATIENT STILL WILL ONLY ANSWER YES OR NO STATEMENTS OR SHAKE OR NOD HIS HEAD. PATIENT HAS HAD GOOD URINE OUTPUT AND HAS HAD NO N/V AFTER 10ML/HR CONTINOUS TUBE FEEDINGS STARTED. PATIENT RESTING AT THIS TIME CALL LIGHT IN REACH.
--- NOTE | 2020-07-02 07:54 | NUR ---
Updated Dr. Hook to conversation with pt's mother last night. Mother is requesting psych treatment. As we have limited mental health in our area due to covid, Dr Hook is in agreement with recommendation by [facility] to call their Crisis Team for an evaluation. He also states he will order a Gastric Emptying test on Eliot as pt has been vomiting.
--- NOTE | 2020-07-02 08:15 | NUR ---
MORNING ASSESSMENT DONE. PATIENT HAS TUBE FEEDING GOING AT 10ML/HR AND IS TOLERATING THIS WITH NO NAUSEA. MOM IN ROOM WITH PATIENT. PATIENT DOES NOT VERBALIZE, BUT ABLE TO ANSWER WITH HEAD SHAKE OR NOD. PATIENT DENIES PAIN, ENDORSES LEFT LEG WEAKNESS. PATIENT DENIES WANTING ANYTHING TO DRINK ANY FLUIDS BY MOUTH.
--- NOTE | 2020-07-02 09:00 | NUR ---
Called and spoke with January from the Crisis Team at [facility] and requested eval for Tyrone. They will have steam setter visit today.
--- NOTE | 2020-07-02 09:21 | NUR ---
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 X-RAY TECH BACK TO IMAGING DEPARTMENT TO DISCUSS USING A DIFFERENT CONTRAST MEDIA WITH RADIOLOGIST.
--- NOTE | 2020-07-02 10:47 | NUR ---
IN TO GIVE PATIENT IV PROTONIX, EXPLAINED USES, PATIENT RESPECTFULLY REFUSED THIS MEDICATION.
--- NOTE | 2020-07-02 10:56 | NUR ---
Jaren from [facility] Crisis team in to see pt. Please see his assessment in paper chart. He discussed assessment with Dr. Hook. He will contact psychiatrist from [facility] and requests they call Dr. Hook to discuss case. He would like to send RBENDA to [facility] mental program in [place] and BRENDA did agree to go. Dr. Hook is awaiting results of bowel follow through. Pt cannot be cleared medically until these results have been completed. Jaren states he does not want to put Eliot on a "Hold", but if pt attemtps to leave staff need to notify crisis team and pt will be placed on "hold." Jaren also states pt may need a high level of care in the [place]. Pt may need to be held in the hospital until a bed is available. Jaren will complete a packet for [facility] and ask they hold a bed for tomorrow. BRENDA signed a release of information and [facility]'s, and this visit for Jul 04 given to Jaren. BRENDA also stated if he goes home, he plans on removing his NG tube.
--- NOTE | 2020-07-02 11:26 | PATH ---
[facility] [address], [place] [address] Signed SPECIMEN(S): A DUODENAL BIOPSY SPECIMEN(S): B DUODENAL BULB BIOPSY SPECIMEN(S): C ANTRUM/PYLORUS BIOPSY SPECIMEN(S): D GE JUNCTION SPECIMEN(S): E LOWER ESOPHAGEAL BIOPSY SPECIMEN(S): F MIDDLE ESOPHAGEAL BIOPSY SPECIMEN SOURCE: A. DUODENAL BIOPSY B. DUODENAL BULB BIOPSY C. ANTRUM/PYLORUS BIOPSY D. GE JUNCTION E. LOWER ESOPHAGEAL BIOPSY F. MIDDLE ESOPHAGEAL BIOPSY CLINICAL HISTORY: Dysphagia, anorexia, hypernatremia/CHRIS. Postop: Gastritis. MICROSCOPIC DESCRIPTION: Histologic sections of all submitted blocks are examined by light microscopy. These findings, together with the gross examination, support the pathologic diagnosis. FINAL PATHOLOGIC DIAGNOSIS: A. Duodenum, biopsy: - Duodenal mucosa with no histopathologic abnormality. - Negative for increased intraepithelial lymphocytes. - Negative for dysplasia or malignancy. B. Duodenum, bulb, biopsy: - Duodenal mucosa with no histopathologic abnormality. - Negative for increased intraepithelial lymphocytes. - Negative for dysplasia or malignancy. C. Stomach, antrum/pylorus, biopsy: - Antral mucosa with mild chronic, inactive gastritis. - Negative for Helicobacter organisms on HE stain. - Negative for dysplasia or malignancy. D. Gastroesophageal junction, biopsy: - Squamocolumnar junctional mucosa with chronic inflammation and reactive epithelial changes, consistent with reflux esophagitis. - Negative for intestinal metaplasia, dysplasia, or malignancy. E. Esophagus, lower, biopsy: - Squamous mucosa with mucosal capillary congestion. PATIENT NAME: MAXIMINO HYDE PATHOLOGY DATE OF : [birth year] REPORT #: [id number] PHYSICIAN: JUAN MANUEL ARAUJO PCP: SANFORD PARDO MD REPORT IS CONFIDENTIAL AND NOT TO BE RELEASED WITHOUT AUTHORIZATION [facility] [address] [place], [place] [address] Signed - Negative for intestinal metaplasia, dysplasia, or malignancy. F. Esophagus, middle, biopsy: - Squamous mucosa with minimal chronic inflammation. - Negative for increased intraepithelial eosinophils. - Negative for dysplasia or malignancy. NAL:cml:C2NR GROSS DESCRIPTION: Six specimens are received in six containers, labeled "DB." A. The specimen, labeled "DB, duodenum," is received in formalin and consists of one chapin soft tissue fragment that measures 0.3 cm in greatest dimension. The specimen is entirely submitted in cassette (A1). B. The specimen, labeled "DB, duodenal bulb," is received in formalin and consists of one chapin soft tissue fragment that measures 0.3 cm in greatest dimension. The specimen is entirely submitted in cassette (B1). C. The specimen, labeled "DB, antrum/pylorus," is received in formalin and consists of one chapin soft tissue fragment that measures 0.3 cm in greatest dimension. The specimen is entirely submitted in cassette (C1). D. The specimen, labeled "DB, GE junction," is received in formalin and consists of one chapin soft tissue fragment that measures 0.3 cm in greatest dimension. The specimen is entirely submitted in cassette (D1). E. The specimen, labeled "DB, lower esophagus," is received in formalin and consists of one chapin soft tissue fragment that measures 0.3 cm in greatest dimension. The specimen is entirely submitted in cassette (E1). F. The specimen, labeled "DB, middle esophagus," is received in formalin and consists of one chapin soft tissue fragment that measures 0.5 cm in greatest dimension. The specimen is entirely submitted in cassette (F1). AT (under the direct supervision of a pathologist) The Gross Description was prepared using a voice recognition system. The report was reviewed for accuracy; however, sound-alike word errors, addition and/or deletions may occur. If there is any question about this report, please contact Client Services. PERFORMING LABORATORY: PATIENT NAME: MAXIMINO HYDE PATHOLOGY DATE OF : [birth year] REPORT #: [id number] PHYSICIAN: JUAN MANUEL PATHOLOGY PCP: SANFORD PARDO MD REPORT IS CONFIDENTIAL AND NOT TO BE RELEASED WITHOUT AUTHORIZATION [facility] [address], [place] [address] Signed The technical component was performed by [facility], [address] [place] [id number] (Journeyman Sheet Metal Worker: Kandi Peacock MD; CLIA# [id number]). Professional interpretation was performed by [facility], [address] [address] (CLIA# [id number]). Diagnostician: Naomi Hidalgo MD Pathologist Electronically Signed 07/02/2020 Copies: ~ PATIENT NAME: MAXIMINO HYDE PATHOLOGY DATE OF : [birth year] REPORT #: [id number] PHYSICIAN: JUAN MANUEL PATHOLOGY PCP: SANFORD PARDO MD REPORT IS CONFIDENTIAL AND NOT TO BE RELEASED WITHOUT AUTHORIZATION
--- NOTE | 2020-07-02 12:32 | NUR ---
PATIENT SITTING UP TO CHAIR, DENIES OTHER NEEDS. URINAL EMPTIED FOR 300ML. PATIENT IS AWARE THAT IMAGING WILL BE HERE AT 1330 TO DO REPEAT X-RAY.
--- NOTE | 2020-07-02 13:39 | NUR ---
IV LA SALINE LOCKED FOR TRANSPORT TO IMAGING. REPEAT ABDOMINAL XRAY FOR SBFT. IV FLUSHED WITH 10MLS 0.9 SODIUM CHLORIDE. NO INFILTRATION, IV SECURED WITH COBAN TO PREVENT MOVEMENT.
--- NOTE | 2020-07-02 15:37 | NUR ---
PATIENT WITH NEW LABS DONE. IMAGING IN TO DO REPEAT ABDOMINAL X-RAY FOR SBFT.
--- NOTE | 2020-07-02 18:03 | NUR ---
PATIENT CONTINUES TO HAVE X-RAY'S FOR SMALL BOWEL FOLLOW THROUGH. NEXT ONE AT 1840, X-RAY TECH IS HOPEFULL THIS IS THE LAST FILM.
--- NOTE | 2020-07-02 20:40 | NUR ---
VERIFIED WITH DR HOUSER IF IT'S OK TO RESTART TUBE FEEDING AFTER THE SMALL BOWEL FOLLOW THROUGH. ORDERS RECEIVED TO RESTART AT 40MLS/HR AND DECREASE TO 20MLS/HR IF PT IS NOT TOLERATING IT. ORDERS ENTERED AND NO FURTHER ORDERS RECEIVED.
--- NOTE | 2020-07-02 21:05 | NUR ---
NGT R adair elmore feedings restarted at 40cc/hr, flushed easily. Pt instructed to call RN if not tolerating TF, stated understanding, Flat affect, answers correctly, slow response. IVF LAC infusing w/o problems. declines clear liquids. call light and fluids at bedside, states no pain. UP in hcair. coop with assessment
--- NOTE | 2020-07-02 21:15 | NUR ---
IN TO GET PT VITALS, SISTER COMING TO VISIT, NO FURTHER NEEDS AT THIS TIME
--- NOTE | 2020-07-02 22:37 | NUR ---
NGT PATENT, INFUSING W/O PROBLEMS. NO C/O PAIN OR N/V. IVF INFUSING.VOIDED DARK YELLOW URINE, SITTING EDGE OF BED VISITING WITH FEMALE FRIEND
--- NOTE | 2020-07-02 23:19 | NUR ---
K RIDER STARTED PER K 3.4 PER NEW ORDERS. EXPLAINED TO PT, COOPERATIVE. NGT TF INFUSING. PT AWAKE, HOB ELEVATED. VISITING WITH FAMILY VIA PHONE
--- NOTE | 2020-07-03 01:00 | NUR ---
AWAKES EASILY, IVF AND K RIDER INFUSING, R NGT TF INFUSING AT 40CC/HR, TOLERATING WELL, HOB ELEVATED, CALM, CALL LIGHT AT BEDSIDE, CONT TO DECLINE ORAL INTAKE
--- NOTE | 2020-07-03 01:43 | NUR ---
AWAKES EASILY, R NGT TF PATENT, NO C/O. IVF INFUSING, K RIDER INFUSING, TOLERATING WELL, CALL LIGHT AT BEDSIDE
--- NOTE | 2020-07-03 02:58 | NUR ---
HUNG LAST BAG OF POTASSIUM FOR PRIMARY RN REYMUNDO. PT IS RESTING WITH EYES CLOSED, RR IS EVEN AND NONLABORED. IV IS INFUSING FINE. CALL LIGHT IS CLOSE.
--- NOTE | 2020-07-03 04:39 | NUR ---
resting, no distress, r ngt tf infusing, tolerating well. IVF infusing, no c/o adverse reaction to K riders. turns self in bed. call light at bedside, has declined oral intake,
--- NOTE | 2020-07-03 05:02 | NUR ---
Pt is on room air, no distress, R NGT TF infusing at 40cc/hr, has tolerated well, no c/o n/v or abd discomfort, abd slightly distended. Has declined oral intake. IVF infusing w/o problems, Received 40mEq KCL rider, tolerated well. 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 Flat affect, slow response but answers appropriately. Call light at bedside.Cooperative
--- NOTE | 2020-07-03 06:26 | NUR ---
awakes easily, coop with vitals, ngt TF infusing, no c/o pain, continues to decline oral intake
--- NOTE | 2020-07-03 08:50 | NUR ---
Assessment completed. Awake, lying in bed. Denies needs at this time. Also denies pain. Call light in reach, bed rails up X2. NG in place with Jevity infusing via kangaroo pump and IV fluids continue infusing at this time.
--- NOTE | 2020-07-03 08:51 | NUR ---
COMPLETED A HEAD TO TOE ASSESMENT FINDINGS DOCUMENTED IN PT ASSESMENT. PT INTERACTED THROUGHOUT THE ASSESMENT AND VERBALIZED RESPONSES WHEN QUESTIONS WERE ASKED. FLAT AFFECT BUT ORIENTATED X3. PT REPORTS NO FURTHER NEEDS AT THIS TIME.
--- NOTE | 2020-07-03 09:00 | NUR ---
FAxed test results for stomach emptying to Jaren at [facility]. Spoke with Dr. Hook and pt is medically cleared and able to dc today. Called and left a message with Jaren requesting if he was able to secure a bed at [facility]. Left my number and requested he return my call.
--- NOTE | 2020-07-03 09:29 | NUR ---
PT IS TOLERATING 40CC/HR JEVITY 1.5 WELL. PT IS NOT CONSUMING ANY CLEAR LIQUIDS. SMALL BOWEL FOLLOW THROUGH SHOWS NO OBSTRUCTION, JUST A DELAY GOING TO THE COLON. Na IS IMPROVING; K+ IS SLIGHTLY LOW, RECIEVING K+ VIA IV. GOAL RATE TO MEET PTS ENERGY NEEDS IS 60CC/HR JEVITY 1.5; THIS WILL PROVIDE 2160 CALORIES/DAY, 97 GRAMS PRO, 1100mL H20/DAY. DR. OHUSER AGREED WITH INCREASING CONTINUOUS FEED TO 60CC/HR AND TO INCREASE H2O FLUSHES TO MEET FLUID NEEDS.
--- NOTE | 2020-07-03 09:49 | NUR ---
Patient up in room, ambulating to answer phone. No other needs verbalized.
--- NOTE | 2020-07-03 10:14 | NUR ---
Assisted student teaching coordinator to saline lock patient and stop tube feeding, flushed with 50 mL of water. IV site covered by student teaching coordinator. Patient informed to call staff when done showering so staff may restart feeding. Verblized understanding.
--- NOTE | 2020-07-03 10:15 | NUR ---
LA D5 IV STOPPED, DISCONNECTED, SECURED, AND COVERED FOR PT SHOWER. ENG FEEDING STOPPED, DISCONNECTED, SECURED, AND FLUSHED WITH 50MLS OF LUKE WARM TAP WATER. PT IS SHOWERING AT THIS TIME. PT REFUSED ORAL CARE PRODUCTS AT THIS TIME, REPORTS NO OTHER NEEDS. PT IS CURRENTLY NOT TAKING ANYTHING INTO HIS MOUTH BY ON HIS OWN REQUEST.
--- NOTE | 2020-07-03 10:36 | NUR ---
ROOM HAS BEEN TIDDIED. FRESH LINENS ON BED, CHAIR, PILLOWS.
--- NOTE | 2020-07-03 10:56 | NUR ---
Spoke with Jaren at [facility]. DJ was turned town for [facility]. They will resubmit today for a bed. He is requesting covid test and tox screen. Will fax Covid test to him and leave a note for RN to fax Tox screen when completed. Dr Hook updated and pt will remain here until he can be placed into a program by [facility].
--- NOTE | 2020-07-03 11:02 | NUR ---
Called mom at her request. Update given, we are on hold until [facility] finds placement. Mom is wanting to bring several family members to visit and I discouraged this as I am concerned pt will be overwhelmed. Pt has requested no visitors. Updated mom Jaren from [facility] will return this afternoon she could discuss with him.
--- NOTE | 2020-07-03 11:05 | NUR ---
Assist student dean to restart tube feeding at 60 mL/hour via kangaroo pump. Patient denies other needs at this time. Call light in reach. Sitting up in recliner at this time.
--- NOTE | 2020-07-03 11:14 | NUR ---
ENG FEEDING TUBING DISCARDED AND REPLACED WITH NEW SET. PT HAS BEEN RESTARED ON FEEDING VIA ENG. PT WAS INCREASED TO 60 ML/HR 40 MLS/HR HAS BEEN WELL TOLERATED AND NO COMPLAINTS FROM PT. >10 MLS AIR INTO ENG TUBE TO VERIFY NO CLOGS IN TUBE PRIOR TO INITIATING FEEDING, ABDOMEN WAS AUSCULTATE TO ENSURE AIR WAS FLOWING INTO ABDOMEN VIA ENG TUBE. FEEDING RESTART TIME WAS 1107. 474 MLS JEVITA WAS PLACED INTO THE NEW TUBING, KANGAROO PUMP WAS REPROGRAMED WITH NEW ORDER OF 60 ML/HR.
--- NOTE | 2020-07-03 12:41 | NUR ---
Jaren from [facility] has been in room assessing patient.
--- NOTE | 2020-07-03 13:01 | NUR ---
Patient in bed, head of bed elevated. NG tube remains in place, continuous feeding infusing. Mother at bedside. Patient states no feeling of nausea or discomfort to stomach. Call light in reach. Bed rails up X2.
--- NOTE | 2020-07-03 14:26 | NUR ---
Per mother, patient has been ambulating around room talking to people that are not there for approximately 20 minutes. Patient disconnected from tube feeding at this time to ambulate in black with PT. Residual less than 5 mL, flushed with 50 mL water.
--- NOTE | 2020-07-03 15:05 | NUR ---
Ambulating in room. Done with PT. Denies need to void. Does not want connected to kangaroo pump at this time. Will restart feeding in a few minutes.
--- NOTE | 2020-07-03 15:23 | NUR ---
Resistant to have feeding restarted. Educated on need to have nutrition. Informed feeding is going at a slow rate and needs to be continuous for him to meet his nutritional needs. Feeding restarted. Continent of urine, specimen sent to lab. Mother remains at bedside. Denies other needs.
--- NOTE | 2020-07-03 17:01 | NUR ---
Patient sitting up in recliner. Denies needs at this time. Call light in reach. [facility] Nikolay Franklin CNA/mortgage closing clerk.
--- NOTE | 2020-07-03 18:28 | NUR ---
Sitting up in recliner. Denies needs at this time. Call light in reach.
--- NOTE | 2020-07-03 19:00 | NUR ---
PT UP IN CHAIR, WATCHING TV. JEVITY INFUSING PER ORDER. NO NEEDS AT THIS TIME. CALL LIGHT IN REACH.
--- NOTE | 2020-07-03 20:10 | NUR ---
IN WITH RN, GETTING PT's VITALS AT THIS TIME, NO FURTHER NEEDS,
--- NOTE | 2020-07-03 20:12 | NUR ---
ASSESSMENT COMPLETED. PT HAS FLAT AFFECT, SPEAKS OCCASSIONALLY WHEN SPOKEN TO. GCS 15. LUNGS CLEAR. HEART TONES REGULAR. ABD SOFT, NONTENDER, BOWEL TONES ACTIVE. PT STATES HAS NUMBNESS AND TINGLING IN TOES AND HANDS, COLOR APPROPRIATE, MOTOR INTACT. NG FEEDING INFUSING PER ORDER. IV WNL, CDI, FLUSHED WELL. NO OTHER NEEDS AT THIS TIME. CALL LIGHT IN REACH.
--- NOTE | 2020-07-03 22:00 | NUR ---
PT MOTHER CALLED TO SAY HIS FATHER, NASIR HYDE, WOULD LIKE TO VISIT. RN ASKED PT IF THIS WAS OK. PT STATES IT IS FINE FOR HIS FATHER TO VISIT TOMORROW.
--- NOTE | 2020-07-03 23:54 | NUR ---
PT RESTING IN BED, EYES CLOSED. RR EVEN, UNLABORED. JEVITY INFUSING PER ORDER. CALL LIGHT IN REACH.
--- NOTE | 2020-07-04 00:15 | NUR ---
IN TO CHECK ON PT TO SEE IF THERE WAS A VOID, EMPTIED URINAL AT THIS TIME, UNABLE TO FIND A LONGER PHONE CHANGER FOR PT
--- NOTE | 2020-07-04 02:30 | NUR ---
PT RESTING IN BED, EYES CLOSED. RR EVEN, UNLABORED. JEVITY INFUSING PER ORDER. CALL LIGHT IN REACH.
--- NOTE | 2020-07-04 04:43 | NUR ---
PT AWAKE IN ROOM. NG TUBE FLUSHED. ASSESSMENT COMPLETED. PT SPOKE A COUPLE OF FULL SENTENCES TO RN AND ANSWERS QUESTIONS APPROPRIATELY. NO OTHER NEEDS AT THIS TIME. CALL LIGHT IN REACH.
--- NOTE | 2020-07-04 06:49 | NUR ---
PT CALLS TO GET ASSISTANCE WITH HIS FEEDING TUBE. PT STATES HE DOES NOT WANT HIS FATHER TO COME SEE HIM TODAY. PT STATES HE ONLY WANTS HIS MOM OR FIANCE TO VISIT HIM. FEEDING TUBE INFUSING PER ORDER. NO OTHER NEEDS AT THIS TIME.
--- NOTE | 2020-07-04 07:26 | NUR ---
Report from Gabe Haro RN. Patient in bed. Denies needs at this time. Call light in reach, bed rails up X2.
--- NOTE | 2020-07-04 09:51 | NUR ---
Assessment completed. Up in chair at this time. Feeding stopped and tube flushed with 120 mL of water. Patient states stomach feels full and he does not feel like he can handle anymore at this time.
--- NOTE | 2020-07-04 10:11 | NUR ---
[facility] in to assess patient. Kitchen called for supplies for kangaroo pump to continue feedings.
--- NOTE | 2020-07-04 10:35 | NUR ---
Patient in bed, visiting with family member. Feeding restarted as prescribed. Denies other needs at this time.
--- NOTE | 2020-07-04 12:20 | NUR ---
Stopped feeding to flush with water. Only able to tolerate 60 mL of water at this time. Asks to stop due to discomfort. Respiratory rate increased and was grabbing abdomen.
--- NOTE | 2020-07-04 13:55 | NUR ---
Patient up in chair. Assessment completed. Denies pain. States he is feeling ok.
--- NOTE | 2020-07-04 14:05 | NUR ---
States stomach continues to feel full. Jevity feeding stopped. No residual noted. Refuses to have free water flushed. Call light in reach. Up in recliner. Denies other needs at this time.
--- NOTE | 2020-07-04 14:27 | NUR ---
NG flushed with 25 mL water. States his stomach is too full and he can not tolerate anymore. Continues with no residual prior to flushing. Unsure if patient's stomach is full or if he is manifesting previous behaviors related to not eating. Will continue to monitor.
--- NOTE | 2020-07-04 14:43 | NUR ---
DR. HOUSER NOTIFIED OF PATIENT INTOLERANCE TO FREE WATER. TELEPHONE ORDERS DR. HOUSER/Bonita DAVENPORT RN, TO CHANGE FREE WATER TO 100 ML EVERY 3 HOURS.
--- NOTE | 2020-07-04 16:48 | NUR ---
Father asks staff to look at patient's neck. States he has noticed patient has been rubbing right side of neck this afternoon when patient asked him to look at it. Patient does have benavidez, unable to visualize area without moving benavidez. Palpate area approximately the size of a quart to right jawline down neck. Edematous area with slight redness and warmth noted. No firmness noted. Area marked with duramark.
--- NOTE | 2020-07-04 17:51 | NUR ---
Patient in bed. Feeding stopped and flushed with 10 mL before patient refused to have any more water due to "full" feeling. Educated on need to have water due to elevated sodium and effects of elevated sodium. Continues to refuse any more water. Feeding restarted. No changes to edema on right jawline noted.
--- NOTE | 2020-07-04 18:18 | NUR ---
Continues on Jevity continuous feeding via NG feeding tube at 60 mL/hour. Attempting flushes of free water today, first flush able to give 120 mL before patient states he can not tolerate more, second flush of 60 mL then next flushes were 25 mL and 10 mL. States he feels his stomach is too full for flushes. No residual noted today prior to each flush. Also attempt to shut feeds off for 20-30 minutes prior to flush and after. Continues to state incapable of holding more due to full feeling. Edema to right jaw line noted today, marked, no changes through shift after noting. WOrks with PT today. [facility] in to see him, continue looking for placement.
--- NOTE | 2020-07-04 21:36 | NUR ---
Pt sitting up in bed, room air, lungs clear bilat, dim at bases. Unable to tolerate water flushed, took only 5cc and c/o abd pain and statrted hyperventilating, no return of feeding noted. Declines to have TF restarted. c/o R mandible-under the ear pain area warm, tender, marked. R NGT in place. measured from tip of nose to begining of purple tip. no emesis, no c/o pain. lower abd slightly distended, soft, diana, denies having had bm's today. SL LAC patent. red areas noted both upper chest, below elbow areas. L side strong hand technical communicator, no weakness noted on L foot either. Flat affect. accepted oral green sponge, NPO. given several cues. cont to decline to have TF restarted. mother in room. Will continues to reinforce teaching.
--- NOTE | 2020-07-04 22:30 | NUR ---
UP FOR A WALK WITH RN, TOLERATED WELL, WENT UP TO 110 AND AROUND DOWN TO END OF HALLWAYS AND BACK TO ROOM, ENCOURAGED TO RESTART NGT TF, DECLINES, STATES ABD HURTS AND HE FEELS VERY FULL. WILL CONTINUE TO ENCOURAGE COMPLIANCE. FLAT AFFECT. ON ROOM AIR.
--- NOTE | 2020-07-04 23:42 | NUR ---
PT CALLED, HAS VOIDED, IN TO EMPTY URINAL AND DOCUMENT, NO FURTHER NEEDS AT THIS TIME
--- NOTE | 2020-07-05 00:26 | NUR ---
AWAKE, ASKED ABOUT NGT TF AGAIN, DECLINES TO HAVE THEM RESTARTED. C/O ABD FULLNESS, DELINES ORAL CARE, ORAL SPONGE AT HANDS REACH. VISITING WITH MOTHER,
--- NOTE | 2020-07-05 03:59 | NUR ---
awakens easily, on room air, RNGT in place, cont to decline TF, call light at hands reach, voiding QS, family in room
--- NOTE | 2020-07-05 05:30 | NUR ---
Pt has been awake off and on watching tv and visiting with mother. On room air. RNGT patent measured earlier in shift from tip of nosa clamp to begining of purple cap. 73cm. Pt declined oral intake and declined TF, c/o R behind ear-jaw area. area warm to touch, slight edema. no cough, no emesis. c/o abd cramping when trying to restart TF and was able to flush only with 5cc as pt started hyperventilating and c/o increaesd abd pain, fullness and increased behind R ear pain. Lungs clear dim at bases. Pt asked several times if he wanted to try and restart his TF, declined each time. Walked hallways x1 tolerated well. voiding QS dark yellow urine, teaching done with pt and mother about possible consequences of fasting on body, unable to assess degree of understanding on pt, mother worries, cont to reinforce pros of TF and cons of fdc fasting-body functions. SL patent, uses call light. Flat affect. slow response or no response at times. mother wants a phone conference with [employer] about what to expect. will notify CM
--- NOTE | 2020-07-05 06:16 | NUR ---
IN TO GET PT VITALS, DENIES NEED TO VOID AT THIS TIME, ICE PACK PROVIDED, NO FURTHER NEEDS AT THIS TIME, PT AGREES TO CALL ONCE HE VOIDS, RN IS AWARE
--- NOTE | 2020-07-05 07:00 | NUR ---
BEDSIDE HANDOFF REPORT RECEIVED FROM SEARCH CONSULTANT RN. PT RESTIN GIN BED. TUBE FEED ON HOLD AT THIS TIME. PT DENIES NEEDS AT THISTIME.
--- NOTE | 2020-07-05 08:57 | NUR ---
Chest x-ray shows NG tube pulled out almost to throat. Attempt to advance. Patient not tolerating. Grabs this nurse's arm to stop advance. Water and ky provided for ease of advancement. Continues to refuse. States discomfort in right neck/jawline area is too irritated to tolerate advancing of NG. States he will not allow any further treatment until he sees the docter. Dr. Hook notified.
--- NOTE | 2020-07-05 09:45 | NUR ---
PT RESTING IN BED, MOTHER AT BEDSIDE. PT CONTINUES TO HAVE PAIN AND SWELLING ON RIGHT SIDE OF NECK, SWOLLEN AND WARM TO THE TOUCH. NG TUBE CLAMPED AT THIS TIME, PLAN TO ATTEMPT TO READVANCE TUBE AFTER CT SCAN IS COMPLETED. LUNG SOUNDS CLEAR, DENIES SOB. BOWEL TONES ACTIVE. PT REPORT OF NUMBNESS AND TINGLING SINCE DECEMEBER IN ALL EXTREMITIES, WITHOUT EDEMA. IV SALINE LOCKED. DISCUSSED PLAN OF CARE FOR THE DAY. PT DENIES OTHER NEEDS AT THIS TIME.
--- NOTE | 2020-07-05 10:07 | NUR ---
PT GAVE PERMISSION TO RETURN CALL TO [facility] FOR UPDAT, CALL PLACED, DISCUSSED PLAN FOR CT SCAN AND NG TUBE PLACEMENT.
--- NOTE | 2020-07-05 10:28 | NUR ---
MEG FROM [employer] HERE TO SEE [employer]AVER STATES THERE SHOULD BE AN OPEN BED AT [facility] TOMORROW.
--- NOTE | 2020-07-05 12:21 | NUR ---
ASKED PATIENT IF HE WOULD LIKE TO TAKE A SHOWER TODAY AND HE SAID MAYBE.
--- NOTE | 2020-07-05 14:42 | NUR ---
RN AYO ATTEMPTED TO ADVANCE WEIGHTED FEEDING TUBE, UNABLE TO ADVANCE IT COILED UP AND WAS EXITING FROM PT MOUTH. DISCUSSED WITH DR. HOUSER, ORDER TO CALL DR. HANSEN FOR NEW FEEDING TUBE PLACEMENT. CALL PLACED TO DR. HANSEN WHO ORDER TO HAVE SMALLER JORDANIAN NG TUBE PLACED NURSING IS ABLE TO PERFORM. ATTEMPTED INSERTION OF 16F NG TUBE. PT VERY APPREHENSIVE TO HAVE TUBE PLACED AND AFTER DISCUSSING OTPIONS WITH PT AND FATHER PT FINALLY AGREED. PT TOLERATED INSERTION OF TUBE PAST UPPER AIRWAY BUT WAS UNABLE TO SWALLOW TO HELP GUIDE TUBE, PT WITH COUGHING/ GAGGING AND SMALL AMOUNT OF EMESIS, TUBE WTIHDRAWN SLIGHTLY AND PT ALLOWED TO CALM BEFORE TRYING TO ADVANCE AGAIN BUT WAS UNABLE TO PLACE FEEDING TUBE, TUBE WITHDRAWN. DISCUSSED WITH PT THAT HE IS IN NEED OF IV ANTIBIOTICS TO HELP REDUCE THE SWELLING IN HIS NECK AND FACILITATE ORAL INTAKE BUT PT CONTINUES TO REFUSE IV THERAPY. DISCUSSED WITH DR. HOUSER WHO WILL RE[facility], NO NEW ORDERS AT THIS TIME.
--- NOTE | 2020-07-05 16:29 | NUR ---
FATHER CAME TO NURSES STATION AND ASKED ABOUT PT DECISION MAKING MAKING, STATES THAT HE WAS TOLD PT IS "A [place] OF THE STATE", DISCUSSED WITH HIM THAT THIS RN WAS NOT AWARE OF IF THAT DETERMINATION HAD BEEN MADE AND [facility] WOULD BE CONTACTED. [facility] AND SHE WAS ALSO NOT AWARE OF THIS AND DEFERED TO HER TELEGRAPHER AGENT. SUPERVISION CALLED AND STATES THAT PT IS A VOLUNTARY PT AT THIS TIME. SALVATIONIST CALLED TO FLOOR TO HELP ASSIST WITH DETERMINING PT STATUS AND TO ENSURE PATIENT RIGHTS.
--- NOTE | 2020-07-05 16:58 | NUR ---
Desi, primary nurse, reached out with concerns of patient not willing to take any other intake or antibiotic. Desi did explain that patient allowed to re-place a NG tube for feeding purposes, but patient did not actively cooperate and attempt was unsuccessful. Called [facility] to consult on issue and update case. They report they are working on placement for an inpatient psychological facility and will discuss these concerns with their truant officer. Read from gold notes that he was going to contact ethics committee reguarding his refusal of antibiotics.
--- NOTE | 2020-07-05 18:16 | NUR ---
PT HAD XRAY THIS AM, SHOWED FEEDING TUBE HAD MIGRATED TO UPPER ESOPHAGUS. CT SCAN TODAY FOR NECK EDEMA, SHOWED PAROTIDITIS. PT REFUSING TO HAVE NG TUBE, REFUSING IV ANTIBIOTICS AND REFUSING IV FLUIDS AT THIS TIME. [facility] INVOLVED IN CARE, STATES THERE SHOULD BE A BED AVAILABLE TOMORROW AT [facility].
--- NOTE | 2020-07-05 18:41 | NUR ---
AGAIN CHECKED WITH PT ABOUT NG TUBE, IV FLUIDS AND IV ANTIBIOTICS AND PT IS REFUSING, STATES "I JUST WANT TO REST".
--- NOTE | 2020-07-05 20:25 | NUR ---
pt in bed, turns self, declines to have NGT reatarted. marking to R back of ear and neck area, warmth and induration increased, marked. tender, did not let me do measurements, warm pad to area, flat affect, coop with vitals and assessment. abd slight distention lower abd, denies need to urinate at this time. Declines any kind of oral intake, and declines IV flush and IV anx. IV SL LAC paten, covered with Koban dressing. calm and cooperative. Declines any teaching at this time, mother not in room. will continue to reinforce compliance and to try oral intacke. no emesis
--- NOTE | 2020-07-05 22:22 | NUR ---
Resting, laying on R side, no distress, warm pad under R ear. eyes closed. awakes easily, continues to decline IV abx or po intake. call ligh at bedside, mother in room.
--- NOTE | 2020-07-06 00:55 | NUR ---
Resting, eyes closed, in bed, turns self, no distress, mother in room
--- NOTE | 2020-07-06 02:00 | NUR ---
awakens easily, declines IV abx. cold pack to r ear area, no changes. still declining po/IV intake
--- NOTE | 2020-07-06 05:29 | NUR ---
Pt has slept off and on. Flat affect, continues to decline any oral intake, declines to have NGT restarted, no IVF, declined to have iv flushed. induration of area behind R ear present, declined to heve it measure, new induration marked. Has been tolerating alternating between ice and warm pads to ear. voiding low UO aware. Family in room
--- NOTE | 2020-07-06 06:52 | NUR ---
pt resting, has been awake mostof this shift. As per mother "ok not do to this am vitals, he has been turning and tossing all night" "I will call when he is awake". No resp distress.
--- NOTE | 2020-07-06 07:34 | NUR ---
PT AWAKE AT TIME OF BEDSIDE REPORT, NOT INTERACTIVE. MOTHER PRESENT IN ROOM. PT DENIES NEEDS AT THIS TIME
--- NOTE | 2020-07-06 08:07 | NUR ---
PATIENT IS IN BED, MOM VERY UPSET, WAS WONDERING WHEN THE ETHICS MEETING FOR [facility] WAS GOING TO HAPPEN AND IF ANY INTERVENTIONS CAN BE DONE. NURSE WAS MADE AWARE OF HER CONCERNS.
--- NOTE | 2020-07-06 08:20 | NUR ---
CALLED [facility], LEFT MESSAGE FOR [facility] RETIREMENT PLAN COUNSELOR FOR HER CALLBACK.
--- NOTE | 2020-07-06 09:12 | NUR ---
SPOKE WITH [facility] CRISIS TEAM AT [facility] REGARDING PATIENT. DISCUSSED PATIENTS REFUSAL FOR TREATMENT. ASKED FOR A PSYCH CONSULT FOR MEDICATIONS, SHE STATES SHE WILL ARRANGE THAT THIS MORNING. SHE STATES THEY ARE MEETING WITH THEIR COMPLIANCE TEAM REGARDING HOW TO HELP PATIENT. SHE STATES SHE WILL LET US KNOW. I DISCUSSED THE CONCERN THAT PATIENT IS NOT TAKING PO INTAKE AND IS REFUSING NUTRITION AND FLUIDS OTHERWISE. DISCUSSED HE NEEDS ANTIBIOTICS AND CAN BECOME VERY SICK WITHOUT TREATMENT AND ASKED THAT THINGS HAPPEN IN A QUICK MANNER FOR HIS SAFETY. SHE STATES THEY UNDERSTAND.
--- NOTE | 2020-07-06 10:18 | NUR ---
WENT IN AND DID PATIENTS VITAL SIGNS, PATIENT DIDNT VERBALLY DIANA WORD BUT HE DID SHAKE HIS HEAD YES AND NO, HE CONSETED TO THIS AUTOMOTIVE ENGINEERING TECHNICIAN DOING HIS VITAL SIGNS, HE HADN'T ATE OR DRANK A THING AND HADN'T USED THE RESTROOM EITHER. NOTHING ELSE TO REPORT AT [facility].
--- NOTE | 2020-07-06 10:26 | NUR ---
PT HAS REFUSED ABX, SL FLUSH, AND PO MED THIS SHIFT. EDUCATION AND ENCOURAGEMENT PROVIDED, PT SAYS NO THANK YOU. MOTHER REMAINS IN THE ROOM. DENIES NEEDS OF
--- NOTE | 2020-07-06 12:13 | NUR ---
DR TORRES IN TO SEE THE PT. MOM IS PRESENT
--- NOTE | 2020-07-06 13:34 | NUR ---
PT RESTING ON THE COUCH MOTHER IS PRESENT DENIES NEEDS OF
--- NOTE | 2020-07-06 14:04 | NUR ---
RECEIVED PHONE CALL FROM [facility] CRIS[facility]AM . SHE STATES THEY MET WITH COMPLIANCE TEAM AND THEY WILL COME DO FACE TO FACE TOMORROW. SHE DOES STATE THEY CANNOT FORCE ANY MEDICAL TREATMENT IF HE WAS DEEMED FOR A HOLD FOR PLACEMENT. SHE STATES SHE WILL BE HERE AT 10AM 07/07/20. DR TESFAYE UPDATED.
--- NOTE | 2020-07-06 14:13 | NUR ---
DR TESFAYE IN WITH PT-WILL TRY AGAIN
--- NOTE | 2020-07-06 14:40 | NUR ---
PT SITTING UP IN THE CHAIR, NO VISITOR PRESENT IN THE ROOM. PT ASKED IF HE HAD ANY QUESTIONS AFTER MD VISIT, HE STATES NO. ASKED PT IF THIS [employer] CHIP SORTER COULD GET ANYTHING FOR HIM HE REPLIES NO THANK YOU.
--- NOTE | 2020-07-06 14:54 | NUR ---
PATIENT WAS IN BED, PATIENT LET ME DO HIS VITAL SIGNS, PATIENT TOLD ME "THANK YOU" I LEFT THE ROOM
--- NOTE | 2020-07-06 16:10 | NUR ---
PT WALKING THE HALLS WITH P/T
--- NOTE | 2020-07-06 19:30 | NUR ---
REPORT RECIEVED FROM MARILYNN ALDRIDGE. LIGHTS OFF IN pt ROOM, ALLOWED TO REST AT THIS TIME.
--- NOTE | 2020-07-06 19:37 | NUR ---
VERBAL ORDER FROM MD TO CHANGE DIET TO CLEAR LIQUIDS. ORDER UPDATED.
--- NOTE | 2020-07-06 21:03 | NUR ---
pt RESTING IN BED AWAKE. SLOW TO RESPOND, ORIENTED TO ALL. pt REFUSES IV ANTIBIOTICS, REFUSES IV FLUIDS, REFUSES SALINE FLUSH. EDUCATION PROVIDED. MASS ON RIGHT SIDE OF NECK PALPABLE, FIRM. pt DENIES PAIN. WARM COMPRESS PROVIDED. ICE WATER PROVIDED, pt DENIES NEED FOR ADDITIONAL PO FLUIDS. CALL LIGHT IN REACH. URINAL EMPTIED, TEA COLOR URINE NOTED.
--- NOTE | 2020-07-06 23:00 | NUR ---
PHONE CALL FROM PATIENT'S MOTHER, CALLING TO CHECK ON pt. UPDATED ON PATIENT STATUS, FLAT AFFECT, REFUSING MEDICATION, IVF. MOTHER STATES THAT PATIENT'S SIGNIFICANT OTHER TOLD HIM TODAY THAT THEY WERE TAKING A BREAK. MOTHER CONCERNED WITH PATIENT STATUS.
--- NOTE | 2020-07-07 00:09 | NUR ---
CHECKED ON pt. RESTING ON COUCH, BREATHING UNLABORED. LIGHTS OFF IN ROOM.
--- NOTE | 2020-07-07 01:57 | NUR ---
CHECKED ON pt. SITTING UP IN BED AWAKE. pt DENIES PAIN, REFUSES WARM COMPRESS FOR FACE. REFUSES ANTIBIOTICS. REFUSES PO FLUIDS. NO REQUESTS AT THIS TIME.
--- NOTE | 2020-07-07 02:30 | NUR ---
THIS RN RESPONDED TO PT CALL LIGHT. PT SITTING UP IN BED AWAKE. PT HANDED ME HIS HOTPACK. WHEN ASKED IF HE WANTED A NEW ONE PT NODDED YES. NEW HOTPACK GIVEN TO PT. PT PROCEEDED TO PUT HOTPACK IN PILLOWCASE. WHEN ASKED IF PT WAS GOING TO USE IT FOR HIS FACE/NECK PT DID NOT REPLY. WHEN ASKED IF PT NEEDED ANYTHING ELSE PT NODDED NO. PT STILL SITTING IN BED AWAKE. BED IN LOWEST POSITION, CALL LIGHT WITHIN REACH, WILL CONTINUE PLAN OF CARE.
--- NOTE | 2020-07-07 02:38 | NUR ---
RECEIVED PHONE CALL FROM BRIANNE FROM [facility], "[facility]", RECRUITING AND SELECTION CONSULTANT WHO IS INQUIRING IF PT CONTINUES TO NEED A BED. STATES THAT THEY HAVE NOT "HEARD" FROM ANYONE FOR 2 DAYS AND WONDERED IF THEY NEEDED TO TAKE HIM OFF THE LIST. SUGGESTED THEY CALL MIAN, OR RIGOBERTO, ON MONDAY FOR MORE INFORMATION. DR TESFAYE AWARE OF THE CALL.
--- NOTE | 2020-07-07 03:25 | NUR ---
THIS RN IN TO CHECK ON PT. PT LAYING IN BED ON L SIDE. RESPIRATIONS NOTED AND UNLABORED. PT IN NO APPARENT DISTRESS AND WAS LEFT UNDISTURBED, WILL CONTINUE PLAN OF CARE.
--- NOTE | 2020-07-07 05:08 | NUR ---
pt WITH FLAT AFFECT. SLOW TO RESPOND, MINIMAL VERBAL INTERACTION WITH NURSING STAFF. pt REFUSING IV ANTIBIOTICS, IV FLUIDS ORDERED. EDUCATION PROVIDED. pt VERBALIZES UNDERSTANDING BUT STATES IT'S HIS PREFERENCE NOT TO HAVE TREATMENT. R PAROTID GLAND SWOLLEN, RED. WARM COMPRESSES PROVIDED THORUGHOUT SHIFT. INDEPENDENT IN ROOM.
--- NOTE | 2020-07-07 06:15 | NUR ---
THIS RN RESPONDED TO PT CALL LIGHT. PT ASSESSED, VS STABLE. PT STILL ONLY NODDING FOR RESPONSES. PT COOPERATIVE WITH ASSESSMENT. PT REFUSES ANY OFFERS OF FOOD OR DRINKS. PT DECLINED A HOT PACK FOR HIS NECK. PT REPORTS NO NEEDS WHEN ASKED. CALL LIGHT WITHIN REACH, BED IN LOWEST POSITION. WILL CONTINUE PLAN OF CARE.
--- NOTE | 2020-07-07 06:15 | NUR ---
MARILYNN ACNTU IN ROOM AFTER PATIENT CALLED. pt ASKED IF HE SLEPT WELL, NO RESPONSE FROM pt. pt DENIES PAIN. RIGHT PAROTID GLAND PALPABLE, FIRM, REDNESS NOTED, WARM TO TOUCH. pt REFUSES WARM PACK, DENIES PAIN. pt UPDATED THAT MOTHER CALLED, NO RESPONSE FROM PATIENT. LIGHTS OFF IN ROOM REQUESTED.
--- NOTE | 2020-07-07 07:17 | NUR ---
RECEIVED REPORT ON PT AT SHIFT EXCHANGE HE IS RESTING EYES CLOSED APPEARS COMFORTABLE.
--- NOTE | 2020-07-07 08:00 | NUR ---
Call from [facility] Bharati Turner. She states they are unable to take this pt. I asked if she could let us know why. She states they are acute care 2-7 days and pt has medical issues they would not be able to deal with. She suggest a lobsterman facility. We discussed we don't have any treatment like this in our area. She suggested [facility] and I let her know they already declined this. She also states as pt is noncompliant with eating or drinking and has dcd his feeding tube, they do not feel they could help in 2-7 days.
--- NOTE | 2020-07-07 09:55 | NUR ---
ALEENA FROM [facility] CRISIS HERE OUTSIDE ROOM. SHE HAS IPAD AND IS LOADING FROM THEIR OFFICE, [facility] WHO IS GOING TO DO ASSESSMENT VIRTUAL.
--- NOTE | 2020-07-07 10:00 | NUR ---
PT CONTINUED TO REST EYES CLOSED AFTER SHIFT EXCHANGE. FRESH H20 PLACED AT BEDSIDE SPOKE TO PT HE DID NOT RESPOND WITH EYE CONTACT OR WORKDS. LEFT RESTING AT THAT TIME. CHECKING BACK IN PT IS TALKING WITH A PERSON LIKELY PSYCHIATRIST SCHEDULED YESTERDAY
--- NOTE | 2020-07-07 10:30 | NUR ---
PATIENT HAVING MEATING WITH Zatt[employer]. MARILYNN ALDRIDGE SAID TO NOT WORRY ABOUT VITALS AND I&O'S AT THIS TIME AND TO WAIT UNTIL [facility] IS DONE.
--- NOTE | 2020-07-07 10:52 | NUR ---
[facility] MEETING IN PROGRESS.
--- NOTE | 2020-07-07 11:47 | NUR ---
PT UP AMBULATING THE [place] WITH P/T. AREA BEHIND RIGHT EAR IS STILL RED AND SWOLLEN. HE DENIES DIFFICULTY SWALLOWING OR BREATHING, CONTINUES TO REFUSE ABX THERAPY
--- NOTE | 2020-07-07 12:05 | NUR ---
PATIENT PULLED HIS NGT OUT YESTERDAY AND HE REFUSED HAVING IT REPLACED SO HE HAS NOT HAD ANY NUTRITION FOR THE PAST 24 HRS. HE IS NOT TAKING ANY FLUIDS BY MOUTH. CURRENT DIET IS CLEAR LIQUID. HE NOW HAS PAROTID GLAND SWELLING. IF PATIENT UNABLE TO EAT/DRINK BY MOUTH AND REFUSES NGT REPLACEMENT, CONSIDER PLACING A PEG TUBE FOR NUTRITION. THIS RD AWARE OF PSYCH ISSUES AND NEED FOR PLACEMENT IN A PSYCH FACILITY. WILL CONTINUE TO MONITOR.
--- NOTE | 2020-07-07 12:57 | NUR ---
CHECKING IN ON PT SITTING UP IN BED. OFFERED HOT PACK, HOT TEA, ICE WATER, ANYTHING? PT SAYS NO THANK YOU.
--- NOTE | 2020-07-07 14:10 | NUR ---
HAD CONSULT WITH DR TESFAYE CONCERNING PT. DISCUSSED WHETHER HE IS AN ETHICS CMTE DISCUSSION. PT SEEMS ABLE TO MAKE HIS OWN DECISIONS, SHORT OF A COURT ORDER. WILL CONTINUE TO FOLLOW AND SEE HOW I CAN ASSIST IN CARE.
--- NOTE | 2020-07-07 14:16 | NUR ---
PATIENT IN BED WATCHING TV. PATIENT COMMUNICATING BY POINTING AND SHAKING HIS HEAD. NO I&O'S TO RECORD, RN NOTIFIED. CALL LIGHT IN REACH. NO FURTHER NEEDS AT THIS TIME.
--- NOTE | 2020-07-07 14:23 | NUR ---
REPORTED NO MEASURED URINE OUTPUT TO DR TESFAYE. PT RESTING ON BED DOES NOT ANSWER QUESTONS OR MAKE EYE CONTACT.
--- NOTE | 2020-07-07 14:33 | NUR ---
STAFF UNSURE WHAT HAS BEEN DECIDED BY [employer]. THEY STATE THE ELECTRONIC DEVICE REPAIRER STATED SHE WOULD BE BACK. PATIENT IS STILL REFUSING ANY CARE OR MEDICATIONS. STILL REFUSING FOOD AND DRINK. CALLED [employer] AND LEFT MESSAGE FOR [facility] FOR CALLBACK.
--- NOTE | 2020-07-07 15:40 | NUR ---
PT RESTING EYES CLOSED, MOTHER IS PRESENT IN THE ROOM.
--- NOTE | 2020-07-07 15:51 | NUR ---
PT MOTHER ASKS ABOUT PLAN GOING FORWARD. DISCUSSED WITH HER THAT [employer] AND PSYCHIATRIST ARE DISCUSSING THIS CASE RIGHT NOW, THEY INFACT JUST CALLED AND ASKED QUESTIONS R/T MEDICAL CONDITION. PT MOTHER STATES THE FATHER HAD TOLD PT HE NO LONGER HAS A CHOICE AND PT HAD JUST SAID OKAY. THIS WINDOW GLASS CUTTER OFF WENT TO THE ROOM AND STATED "I'M GOING TO FOOD SERVICE COORDINATOR THESE FLUIDS NOW, SO I CAN RUN ABX" HE SHOOK HIS HEAD NO. PLEADED WITH HIM TO ALLOW ABX FOR SWELLING AT HIS NECK, RE-ASSURED HIM IT WOULD HELP, HE REFUSES STILL. LEFT HIM RESTING ON THE BED
--- NOTE | 2020-07-07 16:34 | NUR ---
RECEIVED PHONE CALL FROM [facility] [employer]. SHE STATES THEY DID ASSESSMENT. THE HOLD FOR [address] THEY HAVE NOT FOUND A PSYCH PLACEMENT HE IS BEING TURNED DOWN DUE TO THE MEDICAL CONDITION. WE DISCUSSED THAT PATIENT CONTINUES TO REFUSE FOOD/WATER AND TREATMENT. I ASKED IF DUE TO MENTAL CONDITION SUSPECTED, IS THERE A WAY TO OVERRIDE HIS DECISION. SHE STATES NO. THEY CAN GO TO COURT FOR PYSCH PLACEMENT IF HE REFUSES WHEN PLACEMENT FOUND, BUT THEY CANNOT DO ANYTHING ABOUT MEDICAL. UPDATED DR TESFAYE. CALLED SULEIMAN MACHUCA RN WHO IS ON ETHICS COMMITTEE. UPDATED HER ON SITUATION. THEY WILL LOOK AT CASE.
--- NOTE | 2020-07-07 16:40 | NUR ---
SPOKE WITH PATIENTS MOTHER IN [place] AFTER STAFF STATED SHE HAD QUESTIONS. I HAVE NOT VISITED PATIENT DIRECTLY DUE TO STAFF STATING HE SEEMS OVERWHELMED WITH TOO MANY PEOPLE. HE HAS NOT CHANGED HIS MIND REGARDING TREATMENT, AND I DO NOT WANT TO PUSH THIS IT IS NOT EFFECTIVE WITH HIM. SPOKE WITH MOTHER IN [place] IN A QUIET, PRIVATE AREA. MOTHER VENTED FOR AN HOUR. MOTHER IS FEELING LIKE SHE NEEDS TO SUPPORT HIS DECISION OF MEDICAL TREATMENT AT THIS TIME. SHE STATES SHE IS TALKING TO HIM SLOWLY TO SEE IF SHE CAN GET HIM TO CHANGE HIS MIND, BUT SHE FEELS THE MORE PEOPLE PUSH, THE FURTHER HE "DIGS IN". SHE STATED HE UNDERSTANDS THE CONSEQUENCES. SHE IS FRUSTRATED THAT MENTAL HEALTH CAN SAY HE IS AT RISK ENOUGH TO KEEP HIM HERE FOR PLACEMENT OPTIONS, BUT NOT BE ABLE TO SAY HE IS AT RISH ENOUGH TO OVERRIDE HIS MEDICAL DECISIONS. WE DISCUSSED HOW THE TWO ARE SEPARATE FOR THEM. I DID DISCUSS WITH HER THAT A FAMILY CAN SEEK TO TAKE GUARDIANSHIP THROUGH A SODA DRIER FEEDER AND COURT IF THEY CHOOSE. WE DISCUSSED THAT IF PATIENT CAN NO LONGER SPEAK ON HIS OWN BEHALF, THE NEXT OF KIN WILL BE ABLE TO SPEAK. PATIENT HAS INDICATED HIS MOTHER CAN DISCUSS HIS MEDICAL CONDITION WITH STAFF SO SHE WOULD BE NEXT OF KIN. SHE FEELS FRUSTRATED NOT WITH US, BUT THE SYSTEM OF MENTAL HEALTH. SHE VENTED FOR SOME TIME THAT SHE IS GOING TO WORK TO CHANGE THE SYSTEM. QUESTIONS ANSWERED FAR I CAN ON WHERE WE ARE RIGHT NOW. I DISCUSSED THAT AT ANY TIME IF HE IS AGREEABLE WE WILL START MEDICAL TREATMENT. ENCOURAGED HER TO CONTINUE BEING THERE FOR HIM AND TO LET STAFF KNOW HOW THEY CAN SUPPORT HER AND HIM. SHE SEEMED TO JUST NEED SOMEONE TO LISTEN. SHE STATES PATIENT IS SLOWLY STARTING TO ASK SOME QUESTIONS ABOUT THINGS MORE OPENLY. SHE STATES HIS GIRLFRIEND "BROKE OFF WITH HIM YESTERDAY" AND HE IS VERY UPSET ABOUT THIS, BUT HE IS RELIEVED TOO. SHE ALSO STATES SHE FEELS THAT PATIENT IS THINKING BECAUSE HE HAD A "REACTION TO CONTRAST IN [place] THAT ALL THINGS CAN HURT HIM" AND THIS IS WHY HE IS AFRAID. SHE IS UNSURE WHY HE AT FIRST LET TREATMENT AND TESTS BE DONE, BUT STOPPED LATER. SHE STATES SHE IS WORKING ON THIS WITH HIM. DR TESFAYE UPDATED.
--- NOTE | 2020-07-07 16:54 | NUR ---
STATES IF PT HAD SOMETHING TO MAKE HIS MOUTH WATER, LEMON DROP OR OTHER, THE GLAD MIGHT UNPLUG AND ALLOW FLUIDS TO FLOW. OFFERED PT SOUR GUM, REPEATED WHAT MD HAD SAID. HE REFUSES. LEFT GUM AT BEDSIDE ENCOURAGED HIM TO USE IT. MOM CONTINUES IN THE ROOM AT THIS TIME SPEAKING WITH DC MORTGAGE ASSISTANT
--- NOTE | 2020-07-07 19:20 | NUR ---
BEDSIDE REPORT RECEIVED FROM MARILYNN ALDRIDGE. pt RESTING IN BED WITH COVERS PULLED UP, BREATHING UNLABORED.
--- NOTE | 2020-07-07 20:33 | NUR ---
CALL LIGHT ANSWERED. MOTHER STATES PATIENT IS HAVING DIFFICULTY BREATHING. BREATHING LABORED AT THIS TIME. pt CONTINUES TO REFUSE ANTIBIOTICS. THIS RN AND BINDING PRINTER EDUCATION PATIENT ABOUT AIRWAY OBSTRUCTION, ANTIBIOTIC FOR TREATMENT, PROGRESSION OF ABCESS. pt STATES "I DON'T WANT MEDICATION, I WILL TRY OXYGEN." 2L OXYGEN BY NC APPLIED TO pt. pt EDUCATED ABOUT RN CONCERNS WITH AIRWAY AND DIFFICULTY WITH INTUBATION IF AIRWAY IS BLOCKED. pt STATES HE DOES NOT WANT TO , BUT CONTINUES TO REFUSE TREATMENT. WARM PACK OR ICE PACK OFFERED, pt REFUSES. SWELLING WORSENED FROM PREVIOUS SHIFT AROUND RIGHT EAR, ABOVE EAR, REDNESS INCREASED, SWELLING NOTED AROUND NECK. SPO2 IS 100% ON RA AND WITH 2L OXYGEN IN PLACE FOR COMFORT. SITTING IN BED, HOB ELEVATED. LUNG SOUNDS CLEAR THROUGHOUT, DIMINISHED IN BASES BILATERALLY, pt NOT TAKING GRAYSON BREATHS INSTRUCTED. PO FLUIDS, LEMON SWAB OFFERED. pt SPITTING IN CUP. CALL LIGHT IN REACH. MOTHER AT BEDSIDE.
--- NOTE | 2020-07-07 20:44 | NUR ---
PHONE CALL TO [facility] TO UPDATE ON pt STATUS, CONCERNS WITH PATIENT REFUSING MEDICATIONS, AIRWAY OBSTRUCTION. [facility] STATES THEY WILL "CALL MIKE" WHO IS ON THE CASE AND GET BACK TO US. [employer] NET SOFTWARE DEVELOPER NOTIFIED MD VIA TELEPHONE OF pt STATUS, INTERVENTIONS ATTEMPTED.
--- NOTE | 2020-07-07 20:45 | NUR ---
DISCUSSED WITH DR TESFAYE AND LINE SUPPLY LUANN, THAT PT HAS "COMPLAINED" OF NOT BEING ABLE TO BREATH. O2 ON RA 100, ALLOWED SD PRIMARY RN TO ASSESS NECK, EDUCATION PROVIDED REGARDING NO TREATMENT OF ANTIBIOTICS. DR TESFAYE AWARE THAT OFFERS OF GUM, HARD CANDY, AND LEMON MOUTH SWABS WERE REFUSED. DID ALLOW THE IV TO BE DC'D HE REFUSES TO ALLOW IV TO BE FLUSHED. REFUSES INTERVENTION OFFERED. PT PRIMARY AWAITING A CALL BACK FROM [facility].
--- NOTE | 2020-07-07 21:03 | NUR ---
RT IN pt ROOM ASSESSING pt. PASTORAL CARE ALSO IN ROOM, pt AGREEABLE. PASTORAL CARE NOW VISITING WITH pt'S MOM.
--- NOTE | 2020-07-07 21:52 | NUR ---
RESPONDED TO PT CALL LIGHT. PT'S MOTHER STATED HE WANTED "AN OXYGEN MASK" INSTEAD OF HIS NC. OXYMASK BROUGHT TO PT'S ROOM. WHEN ASKED, PT'S MOM STATED THAT THE PT FELT IF OXYGEN WAS NOT COMING OUT OF THE NASAL CANNULA. OXYMASK PUT ON PT. O2 CHANGED FROM 2 TO 2.5 PT STILL DID NOT BELIEVE HE WAS GETTING ENOUGH OXYGEN ACCORDING TO HIS MOTHER. PT NOW LAYING IN BED AWAKE, MOTHER AT BEDSIDE CHAIR. PT REPORTS NO FURTHER NEEDS WHEN ASKED, WILL CONTINUE PLAN OF CARE.
--- NOTE | 2020-07-07 22:21 | NUR ---
REFERRED TO THE PT BY THE RN DURING ROUNDS PT WAS NON-VERBAL BUT DID RESPOND TO MY QUESTIONS WITH HEAD NODS AND DID MAKE EYE CONTACT. I ASKED HIM IF HE WOULD LIKE PRAYER AND HE NODDED YES. I PRAYED WITH HIM AND THEN OFFERED SOME WORDS OF SPIRITUAL ENCOURAGEMENT, HE AGAIN NODDED YES. I THEN VISITED WITH HIS MOTHER OUTSIDE OF THE ROOM. SHE ELABORATED ON A LONG HISTORY OF THE PT AND HER FAMILY. FROM MY UNDERSTANDING ... SHE IS FEELING GREAT ANXIETY AND PRESSURE ON THE ONE HAND, HONORING HER SON'S WISHES HE HAS LONG STATED, ON THE OTHER HAND, BEING PRESSED BY HER OWN CONSCIENCE AND BY HER FAMILY TO INITIATE TREATMENT OF HIS CONDITION. I ACTIVELY LISTENED AND ASKED CLARIFYING QUESTIONS. I REMINDED HER THAT AT THIS POINT IT IS NOT HER DECISION TO MAKE. I AFFIRMED TO HER THE STAFF WAS DOING EVERYTHING THEY COULD DO. I ENCOURAGED HER TO ALLOW THE STAFF AND PSYCH CONSULT TO WORK WITH THE PT AND THAT HER ROLE FOR NOW WAS SIMPLY TO BE PRESENT, CALM AND LOVING FOR HER SON. I OFFERED PRAYER, WHICH SHE GRATEFULLY ACCEPTED.
--- NOTE | 2020-07-07 23:22 | NUR ---
MOTHER OUT OF ROOM. NOTIFIED THAT pt COMPLAINS OF BRIGHT LIGHTS. HALLWAY LIGHTS DIMMED AT THIS TIME. NO ADDITIONAL REQUESTS.
--- NOTE | 2020-07-08 00:36 | NUR ---
IN TO CHECK ON pt MOTHER OUT OF ROOM AT THIS TIME. STATES pt HAS BEEN DRY HEAVING, NO EMESIS. CONTINUES TO REFUSE MEDICATION. MOTHER STATES SHE NEEDS A BREAK AND pt IS NOW TRYING TO SLEEP. CHECKED ON pt. RESTING IN BED ON LEFT SIDE, RR 16. BREATHING EQUAL AND UNLABORED. LIGHTS OFF IN ROOM. MOTHER OUT OF ROOM AT THIS TIME.
--- NOTE | 2020-07-08 02:00 | NUR ---
pt'S MOTHER BACK IN ROOM. pt RESTING IN BED WITH EYES CLOSED. 2.5 L OXYGEN BY OXYMASK IN PLACE. MOTHER STATES pt TRIED TO VOID, UNABLE TO VOID. pt CONTINUES TO REFUSE ANTIBIOTIC MEDICATION AND IVF PER MOTHER. CALL LIGHT IS IN REACH.
--- NOTE | 2020-07-08 05:16 | NUR ---
pt RESTING ON LEFT SIDE. 2.5 L OXYGEN BY OXYMASK IN PLACE, BREATHING UNLABORED. LIGHTS OFF IN ROOM. MOTHER SLEEPING IN CHAIR AT BEDSIDE.
--- NOTE | 2020-07-08 05:16 | NUR ---
pt WITH LABORED BREATHING AT START OF SHIFT. ABCESS ON RIGHT SIDE APPEARS WORSE FROM PREVIOUS SHIFT, HOT TO TOUCH, TENDER WITH PALPATION, APPEARS INCREASED IN SIZE. 2.5 L OXYGEN BY OXYMASK APPLIED PER pt REQUEST. pt REFUSES IV ANTIBIOTICS, IVF ORDERED. LONG DISCUSSION WITH pt AND MOTHER ABOUT RISKS OF NOT RECEIVING TREATMENT, AIRWAY MANAGEMENT. pt STATING WISHES TO LIVE. CONTINUES TO REFUSE MEDICATIONS. NO IV ACCESS. MD AWARE. [employer] CONTACTED WITH NO RETURN CALL. pt APPEARED TO REST FOR LARGE PART OF SHIFT. NO PO INTAKE. PO FLUIDS, LEMON SWABS, HARD CANDY OFFERED, POPSICLES OFFERED. NO URINE OUTPUT REPORTED.
--- NOTE | 2020-07-08 06:50 | NUR ---
pt SLEEPING, AWAKENS TO VOICE. VSS. MOTHER AT BEDSIDE. ASSESSMENT COMPLETE. ORAL MUCOSA DRY. 2.5 L OXYGEN BY OXYMASK IN PLACE PER pt REQUEST. pt DENIES SOB. DENIES PAIN. HARD MASS PALPABLE ON RIGHT SIDE OF NECK AROUND EAR, RED, HOT TO TOUCH. pt STATES TONGUE IS SWOLLEN. pt UNABLE TO FULLY OPEN MOUTH FOR ASSESSMENT, MOUTH SWABS OFFERED, pt DECLINES. pt ASKED IF THIS RN CAN START NEW IV AND "GIVE WATER WITHOUT MEDICATIONS" pt DECLINES WITH MOTHER AT BEDSIDE ENCOURAGING. EDUCATION PROVIDED. pt DECLINES. LUNG SOUNDS DIMINISHED THROUGHOUT, pt WITH SHALLOW BREATHING. LIGHTS TURNED OFF IN ROOM. NO REQUESTS FROM pt OR MOTHER.
--- NOTE | 2020-07-08 07:19 | NUR ---
Report from Iris Lamas RN. Patient resting in bed. Allowed to rest at this time. Call light in reach. Bed rails up X2.
--- NOTE | 2020-07-08 09:01 | NUR ---
OXYGEN REMOVED FROM PATIENT. OXYGEN ORDER D/C'D
--- NOTE | 2020-07-08 10:37 | NUR ---
PATIENT RESTING IN BED, EYES CLOSED. WOKE TO VOICE. PATIENT IS USING HAND GESTURES OR HEAD MOVEMENT TO COMMUNICATE. REUSED BREAKFAST, HAS NO VOID/BM THIS MORNING. VITALS AND I&OS CHARTE. CALL SERGIO IN REACH, NO OTHER NEEDS AT THIS TIME
--- NOTE | 2020-07-08 11:09 | NUR ---
Visiting with mother at this time. Call light in reach.
--- NOTE | 2020-07-08 11:14 | NUR ---
A CARE MEETING WITH THIS NURSE, CHARGE NURSE ON MED SURG, PATIENT'S MOTHER, LITZY FROM [employer], AND MINA SUBRAMANIAN FROM DISCHARGE PLANNING. CONCERNS VOICED THAT PATIENT'S PSYCHOLOGICAL REASONING IS EFFECTING THE PATIENT'S CARE AND TREATMENT. PATIENT IS REFUSING ANTIBIOTIC TREATMENT OF AN INFECTION AND REFUSING FOOD AND WATER. PHYSICIANS HAVE EXPLAIN THE MEDICAL RISK OF THESE DECISION. AT 1215HRS TODAY, DAVEY FROM [employer] IS COMING TO COMPLETE A PSYCHOLOGICAL EVALUATION THAT SHE WILL COMMUNICATED TO A PSYCHIATRIST, AND MOTHER IS PLANNING ON TRYING TO GET LEGAL GUARDIANSHIP. IF MOTHER OBTAINS GUARDIANSHIP, MOTHER PLANS ON TAKING PATIENT TO A FACILITY THAT CAN TREAT THE PATIENT'S MEDICAL AND PSYCHOLOGICAL NEEDS.
--- NOTE | 2020-07-08 11:15 | NUR ---
Jaren from [employer] in to see patient.
--- NOTE | 2020-07-08 12:37 | NUR ---
Mental health worker in to assess patient. Mother in room.
--- NOTE | 2020-07-08 13:09 | NUR ---
Lying on left side. Gives "OK" hand signal when asked how he is doing. Shakes head no when asked if he needs anything. Mother at bedside at this time. Garret Eastman, leaves room.
--- NOTE | 2020-07-08 13:21 | NUR ---
PATIENT RESTING IN BED, EYES CLOSED. VITALS AND I&OS CHARTED. WARM PACK PROVIDED FOR COMFORT ON NECK. CALL LIGHT IN REACH
--- NOTE | 2020-07-08 14:18 | NUR ---
ASSESSMENT COMPLETED. PATIENT REMAINS LYING ON LEFT SIDE. CONTINENT OF URINE X1 WITH TOTAL 425 ML. URINE WAS KIRK AND CONCENTRATED. DENIES OTHER NEEDS AT THIS TIME. WARM PACK REMAINS IN PLACE TO RIGHT SIDE OF FACE.
--- NOTE | 2020-07-08 15:03 | NUR ---
AMBULATING IN HALLWAY WITH PT.
--- NOTE | 2020-07-08 15:48 | NUR ---
LYING ON LEFT SIDE IN BED. RESPIRATIONS EVEN AND UNLABORED. EYES CLOSED AT THIS TIME. ALLOWED TO REST. CALL LIGHT IN REACH. BED RAILS UP X2.
--- NOTE | 2020-07-08 16:12 | NUR ---
Spoke with BRENDA. He does not speak today, but writes notes after pointing at the swelling in his jaw. Updated we are awaiting a bed, but I have not be able to find placement at this time. He wants to know where he will go and I let him know more than likely, [place] as they have more facilities. He writes me a note he has an infection in his jaw. I asked if he still doesn't want antibiotics and he shakes his head, "no". He writes me a note when I asked why he won't take antibiotics which read, "don't like median-neutralism. I let him know I don't know what that means and he smiled at me. We discussed his jaw could cont. to swell and he could become very ill. Let him know I will follow up with him when I hear anything from [facility] [employer] Their is going to call Dr. Luque today per January at [facility]. I gave her the hospitalist phone number to call.
--- NOTE | 2020-07-08 16:50 | NUR ---
Uses call light for assistance. Asks for information about edema in neck using paper and pen to communicate. Informed of diagnosis and treatment needed. Also educated on effects of not eat or drinking and not taking IV fluids or antibiotics. Gives thumbs up sign. Denies other needs. Call light in reach.
--- NOTE | 2020-07-08 16:50 | NUR ---
Update from Dr. Luque. She was able to speak with Dr. Tidwell from [facility] Please see notes.
--- NOTE | 2020-07-08 17:11 | NUR ---
VITALS AND I&OS CHARTED. PATIENT SITTING AT SIDE OF BED. CALL LIGHT IN REACH, NO OTHER NEEDS AT THIS TIME
--- NOTE | 2020-07-08 17:26 | NUR ---
Not talking today. Using pen and paper, hand gestures, nodding/shaking head to answer questions. Lays in bed throughout most of the day in a dark room, refusing blinds being opened or lights on. Does ambulate in hallway once with PT. Educated on need for antibiotics and fluids, no changes. [facility] in to assess patient today. Contines to refuse medications and treatments.
--- NOTE | 2020-07-08 20:03 | NUR ---
pt in bed, mute at this time, flat affect, stares into space, sits up for assessment. coop with vitals, declines to let me measure redness, induration and edema of behind R ear and jaw area, tender, earm to touch. declines IV abx and any meds. On room air, no IV site, LAC old iv site tender and bruised area. R elbow tender and red, rough skin present. not open. Declines oral intake, decelined need to urinate, uses urinal, declines to use bladder scanner, room very dark at this requests, alternating warm and ice packs for R ear area given.Call lihgt at bedside. declines scds
--- NOTE | 2020-07-09 00:13 | NUR ---
PT RESTING, EYES CLOSED, WEARING EYE MASK, NO DISTRESS NOTED. CALM, AWAKES EASILY AND WAVES, NON VERBAL AT THIS TIME, MOTHER IN ROOM
--- NOTE | 2020-07-09 00:26 | NUR ---
WALKING HALLWAYS WITH MOTHER, TOLERATING WELL
--- NOTE | 2020-07-09 01:50 | NUR ---
RESTING, TURNS SELF IN BED AWAKE, HOT PAD TO R EAR EDEMA AREA, CONTINUES TO DECLINE PO INTAKE AND MEDS. NON VERBAL MOTHER IN ROOM,
--- NOTE | 2020-07-09 03:09 | NUR ---
PT CAME OUT TO NURSES STATION TO GET A NEW HEAT PACK, NO FURTHER NEEDS AT THIS TIME
--- NOTE | 2020-07-09 05:33 | NUR ---
Pt resting, has been restless and awake most of this shift. Non verbal and making hand and head signals for yes and no answers. Continues to decline oral intake or to have NGT/TF or IVF/restarted, no IV site. On room air. Voided x1 MD aware of pts low UO and declineing intake of any form, declines IV abx. Increased edema and induration behind the R ear and jaw area. Has tolerated warm packs to that area all this shift,Flat affect, mother was in room til about 0100am. Pt walked hallways with mother several tiimes. Continue to reinforce his safety and praise efforts
--- NOTE | 2020-07-09 05:53 | NUR ---
Declines to have vital signs taken at this time. laying doen in couch by window. Warm pad to R ear. voided 275cc kay colored urine. Nonverbal shakes head for no answers.
--- NOTE | 2020-07-09 07:28 | NUR ---
Report from Justyn Beard RN. Patient currently sitting up in recliner. Gives "ok" with hands when asked how he is feeling. When asked if he is having any pain, shakes head no. Also shakes head no when asked if he needs anything. Call light in reach.
--- NOTE | 2020-07-09 09:25 | NUR ---
Ambulating in hallway with PT
--- NOTE | 2020-07-09 10:34 | NUR ---
Lying on stomach. When asked if he needs anything, patient shakes head no. Call light in reach.
--- NOTE | 2020-07-09 10:45 | NUR ---
Notified by Dr. Luque, pt. cont. to refuse all treatment, he does cont. to walk with PT. She has just spoken with patient and he declines all treatment. While we are discussing patient, I received a call from Venus Mooney, Risk Management. She is requesting documentation from [facility] [place] Psychiatrist to fax documentation to be placed into the chart. Updated I will call January from [facility] [place] as she was who I spoke with yesterday when Dr. Tidwell was attempting to contact Dr. Luque. Attempted to reach January by phone, left a message asking for return call. I reviewed the chart and there is now a 1 page note from [facility] [place] with orders and notes on conversation between Dr. Tidwell and Dr. Luque from 07/08/20. However, there is only 1 page and it does not have the Dr. Tidwell's name and ends midsentence. I'm guessing only half the fax came through. When I receive a return call from [facility], I will request the rest of the fax for our chart.
--- NOTE | 2020-07-09 13:03 | NUR ---
Patient sitting up in recliner. Mother in room. SHakes head no when asked if he needs anything. Continues to not speak at this time. Mother states she has been in contact with an assistant city attorney regarding guardianship for patient and should have papers this afternoon.
--- NOTE | 2020-07-09 13:15 | NUR ---
I was able to obtain Dr. Tidwell's cell phone number from Dr. Luque. Called updated we did not recieve a completed note. Also updated note states Dr. Luque is an ER Dr and the pt is in the ER. Requested she please addend to read Dr. Luque is a Hospitalist and DJ is an IP. She agrees and will fax this today. Saw BRENDA's mom. She states DJ agreed to guardianship. She has had assistance from a marketing communications assistant and papers have been filed. She hopes to have paperwork by this evening or tomorrow. She would like to take BRENDA home and then on the [facility] in [place]. She and her marketing communications assistant were able to speak with [facility]. They encouraged her to bring him to their waiting area and when a beds opens he can be admitted.
--- NOTE | 2020-07-09 13:23 | NUR ---
Ambulating in black with mother.
--- NOTE | 2020-07-09 14:16 | NUR ---
Assessment completed, then gets up to ambulate in halls with PT and mother. Denies needs.
--- NOTE | 2020-07-09 16:40 | NUR ---
Lying on couch in room. No urine output, Dr. Luque notified. Patient denies needs. Encouraged to drink water, ice water provided. Continues to not speak.
--- NOTE | 2020-07-09 17:47 | NUR ---
ALISON FROM [employer] CALLED REQUESTING A COPY OF THE GUARDIANSHIP TO BE FAXED TO [employer] AT [phone]. I CALLED CASEY THE MOTHER AND VERIFIED THAT THIS WAS OKAY TO DO. SHE SAID SHE WANTED US TO GET THEM A COPY. FAXED THEM A COPY. CONFIRMATION IN CHART.
--- NOTE | 2020-07-09 18:20 | NUR ---
ALISON FROM [employer] CALLED BACK TO SAY THAT THE FIVE DAY HOLD IS REVOKED ON PATIENT AND THAT MOTHER IS PLANNING ON PICKING HIM UP AND TAKING HIM TO [place]. I CALLED CASEY AND GOT A PLAN IN PLACE. 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 UPDATED CHARGE NURSE AND DR. TESFAYE.
--- NOTE | 2020-07-09 18:24 | NUR ---
Release from [employer] recieved regarding hold. Mother states she will arrive within the next hour to hour and half to pick patient up. Discussed with Dr. Luque.
--- NOTE | 2020-07-09 19:11 | NUR ---
RECEIVED REPORT FROM MARILYNN ROLLINS. pt SITTING ON SIDE OF BED. NOTED SWELLING IN RIGHT SIDE OF JAW. pt DENIES PAIN AND NEEDS AT THIS TIME. CALL LIGHT WITHIN REACH. WHITEBOARD UPDATED.
--- NOTE | 2020-07-09 19:54 | NUR ---
MOTHER, CASEY, ARRIVED. PROVIDED PAPERWORK FOR GUARDIANSHIP. VERBALIZED UNDERSTANDING OF DISCHARGE INSTRUCTIONS. CASEY, ANOTHER SON, AND THIS RN TO ROOM. pt RESTING ON COUCH. ALL BELONGS GATHERED BY CASEY AND BROTHER. pt USED HANDS TO INDICATE NEEDS, WROTE ONE QUESTION. NON VERBAL AT THIS TIME. pt AMBULATING WITHOUT DIFFICULTY. CHANGING INTO PERSONAL CLOTHES. CALL LIGHT WITHIN REACH.
--- NOTE | 2020-07-09 20:00 | NUR ---
VITALS DONE. pt GATHERED BELONGINGS. WHEELED TO FRONT DOOR BY THIS RN. AMBULATED SELF TO CAR.
== END 2020-07-09 20:00 | disposition home or self-care (01) | DRG 641 ==
LOC: ED 11:44 → MS 14:05
PROVIDERS: Colon & Rectal Surgery; ADMIT Internal Medicine; ATTEND Internal Medicine
PROC: 0DB28ZX Excision of Middle Esophagus, Via Natural or Artificial Opening Endoscopic, Diagnostic (ICD-10-PCS; 2020-07-01)
PROC: 0DB38ZX Excision of Lower Esophagus, Via Natural or Artificial Opening Endoscopic, Diagnostic (ICD-10-PCS; 2020-07-01)
PROC: 0DB48ZX Excision of Esophagogastric Junction, Via Natural or Artificial Opening Endoscopic, Diagnostic (ICD-10-PCS; 2020-07-01)
PROC: 0DH67UZ Insertion of Feeding Device into Stomach, Via Natural or Artificial Opening (ICD-10-PCS; 2020-07-01)
PROC: 0DB98ZX Excision of Duodenum, Via Natural or Artificial Opening Endoscopic, Diagnostic (ICD-10-PCS; principal; 2020-07-01 12:30)
PROC: 0DB68ZX Excision of Stomach, Via Natural or Artificial Opening Endoscopic, Diagnostic (ICD-10-PCS; 2020-07-01 12:30)
DX: E87.0 Hyperosmolality and hypernatremia (principal); N17.9 Acute kidney failure, unspecified; R65.10 Systemic inflammatory response syndrome (SIRS) of non-infectious origin without acute organ dysfunction; Z20.822 Contact with and (suspected) exposure to COVID-19; E86.0 Dehydration; K29.90 Gastroduodenitis, unspecified, without bleeding; J45.909 Unspecified asthma, uncomplicated; I10 Essential (primary) hypertension; E73.9 Lactose intolerance, unspecified; K11.20 Sialoadenitis, unspecified; Q07.00 Arnold-Chiari syndrome without spina bifida or hydrocephalus; F20.9 Schizophrenia, unspecified; F44.4 Conversion disorder with motor symptom or deficit; Z91.19 Patient's noncompliance with other medical treatment and regimen; Z87.891 Personal history of nicotine dependence; Z88.2 Allergy status to sulfonamides; Z88.5 Allergy status to narcotic agent; Z91.041 Radiographic dye allergy status
CPT/HCPCS: 36415; 51798; 70490; 71045; 71046; 74176; 74250; 80048; 80053; 83735; 84100; 85025; 85651; 86140; 86677; 88305; 97110; 97112; 97116; 97161; 97165; 99284; J2704; J3480; J7030; J7060; J7070; J7121; U0003

== ENCOUNTER 2021-09-18 16:17 | Emergency (ER) | payer OTHER ==
[~2021-09-18] VITALS: Ht 180.3 cm; Wt 111.1 kg
--- NOTE | 2021-09-19 07:39 | EKG ---
[facility] [address] [place] [address] Signed Normal sinus rhythm Normal ECG No previous ECGs available Confirmed by RYAN TESFAYE MD ([id number]) on 09/19/2021 7:39:01 AM Electronically Signed By: RYAN TESFAYE MD 09/19/21 0739 PATIENT NAME: MAXIMINO HYDE ANJELICA Electrocardiogram DATE OF : [birth year] PHYSICIAN: RYAN TESFAYE MD REPORT #: [id number] REPORT IS CONFIDENTIAL AND NOT TO BE RELEASED WITHOUT AUTHORIZATION
== END 2021-09-18 19:06 | disposition home or self-care (01) ==
LOC: ED 16:17
DX: R55 Syncope and collapse (principal); I10 Essential (primary) hypertension; J45.909 Unspecified asthma, uncomplicated; Z88.2 Allergy status to sulfonamides; Z88.5 Allergy status to narcotic agent; Z91.041 Radiographic dye allergy status
CPT/HCPCS: 36415; 80053; 81001; 83036; 83735; 84443; 85025; 93005; 93010; 99284-25

== ENCOUNTER 2021-11-05 19:56 | Emergency (ER) | payer OTHER ==
[~2021-11-05] VITALS: Ht 180.3 cm; Wt 109.0 kg
== END 2021-11-05 21:46 | disposition home or self-care (01) ==
LOC: ED 19:56
DX: J45.909 Unspecified asthma, uncomplicated (principal); I10 Essential (primary) hypertension; Z88.2 Allergy status to sulfonamides; Z88.5 Allergy status to narcotic agent; Z91.041 Radiographic dye allergy status
CPT/HCPCS: 71046; 99284-25

== ENCOUNTER 2022-01-03 13:37 | Emergency (ER) | payer OTHER ==
[~2022-01-03] VITALS: Ht 180.3 cm; Wt 109.0 kg
== END 2022-01-03 19:33 | disposition home or self-care (01) ==
LOC: ED 13:37
DX: R51.9 Headache, unspecified (principal); I10 Essential (primary) hypertension; Z88.2 Allergy status to sulfonamides; Z88.5 Allergy status to narcotic agent; Z91.041 Radiographic dye allergy status
CPT/HCPCS: 70450; A9270

== ENCOUNTER 2022-02-12 17:05 | Emergency (ER) | payer OTHER ==
[~2022-02-12] VITALS: Ht 180.3 cm; Wt 110.3 kg
[2022-02-12] MEDS ORDERED: CEPHALEXIN500 M1 PO (18:09)
== END 2022-02-12 18:20 | disposition home or self-care (01) ==
LOC: ED 17:05
DX: L03.032 Cellulitis of left toe (principal); I10 Essential (primary) hypertension; J45.909 Unspecified asthma, uncomplicated; Z88.2 Allergy status to sulfonamides; Z88.5 Allergy status to narcotic agent; Z91.041 Radiographic dye allergy status
CPT/HCPCS: 11730; 99283-25

== ENCOUNTER 2022-03-30 23:42 | Emergency (ER) | payer OTHER ==
[~2022-03-30] VITALS: Ht 180.3 cm; Wt 106.5 kg
[~2022-03-30 23:42] MED LIST changes: +CEPHALEXIN500 M1 PO
== END 2022-03-31 01:02 | disposition home or self-care (01) ==
LOC: ED 23:42
DX: J98.9 Respiratory disorder, unspecified (principal); B97.89 Other viral agents as the cause of diseases classified elsewhere; J45.909 Unspecified asthma, uncomplicated; I10 Essential (primary) hypertension; Z20.822 Contact with and (suspected) exposure to COVID-19
CPT/HCPCS: 87502; 99283; C9803; U0003

== ENCOUNTER 2022-08-22 03:02 | Emergency (ER) | payer OTHER ==
[~2022-08-22] VITALS: Ht 177.8 cm; Wt 112.7 kg
[2022-08-22] MEDS ORDERED: ONDANSETRON ODT8 MG PO (03:59)
== END 2022-08-22 04:30 | disposition home or self-care (01) ==
LOC: ED 03:02
DX: K52.9 Noninfective gastroenteritis and colitis, unspecified (principal); J45.909 Unspecified asthma, uncomplicated; I10 Essential (primary) hypertension; Z88.2 Allergy status to sulfonamides; Z88.5 Allergy status to narcotic agent; Z91.041 Radiographic dye allergy status
CPT/HCPCS: 36415; 74176; 80053; 81001; 83690; 85025; 96361; 96374; 99284-25; A9270; J2405; J7030

== ENCOUNTER 2022-10-02 05:22 | Emergency (ER) | payer OTHER ==
[~2022-10-02] VITALS: Ht 177.8 cm; Wt 109.8 kg
[~2022-10-02 05:22] MED LIST changes: +ONDANSETRON ODT8 MG PO
[2022-10-02 06:30] VITALS: BP 147/113
== END 2022-10-02 06:31 | disposition home or self-care (01) ==
LOC: ED 05:22
DX: G89.18 Other acute postprocedural pain (principal); I10 Essential (primary) hypertension; J45.909 Unspecified asthma, uncomplicated; Z88.5 Allergy status to narcotic agent; Z88.2 Allergy status to sulfonamides; Z91.041 Radiographic dye allergy status; Z79.899 Other long term (current) drug therapy
CPT/HCPCS: 81001; A9270

== ENCOUNTER 2024-01-20 15:11 | Emergency (ER) | payer OTHER ==
[~2024-01-20] VITALS: Ht 177.8 cm; Wt 107.0 kg
--- OUTSIDE RECORDS SUMMARY | ~2024-01-20 | XMS | Continuity of Care Document ---
Demographics + + + | Address | [address] | | | [place] [address] | + + + | Preferred Language | Unknown | + + + | Marital Status | unknown | + + + | Cheondoism Affiliation | Unknown | + + + | Race | White | + + + | Ethnic Group | Not or | + + + Author + + + | Author | [facility] | + + + | Organization | [facility] | + + + | Address | [address] | | | [place] [address] | + + + | Phone | | + + + Care Team Providers + + + + | Care Procedure Manager Name | Role | Phone | + + + + Unavailable | Unavailable | + + + + Unavailable | Unavailable | + + + + Allergies No information. Encounters No information. Functional Status No information. Immunizations No information. Medications + + + + | date | description | facility | + + + + | 2023-10-23 00:00 | Drug or medicament | [facility] | | | (substance) | 1 | + + + + Problems + + + + | date | description | facility | + + + + | 2023-10-23 10:59:23 | Release of Information | [facility] | + + + + Procedures No information. Results/Labs No information. Social History + + + + | date | description | facility | + + + + | 2023-10-23 00:00 | Current smoker | [facility] | | | | 1 | + + + + Vital Signs No information."
[2024-01-20] MEDS ORDERED: KETOROLAC TROMETHAMINE 30 MG/ML VIAL IV ONE (17:30)
[2024-01-20] MEDS ORDERED: KETOROLAC TROMETHAMINE 30 MG/ML VIAL IM ONE (17:45)
[2024-01-20 19:10] VITALS: BP 135/94
== END 2024-01-20 19:13 | disposition home or self-care (01) ==
LOC: ED 15:11
DX: R51.9 Headache, unspecified (principal); I10 Essential (primary) hypertension; J45.909 Unspecified asthma, uncomplicated; Z88.2 Allergy status to sulfonamides; Z88.5 Allergy status to narcotic agent; Z91.041 Radiographic dye allergy status
CPT/HCPCS: 96372; 99283-25; J1885

== ENCOUNTER 2024-11-26 06:36 | Day surgery (SDC) | payer OTHER ==
[2024-11-25 15:24] VITALS: BP 134/84
[~2024-11-26] VITALS: Ht 177.8 cm; Wt 116.0 kg
[~2024-11-26 06:36] MED LIST changes: +FLONASE ALLERG9.9 ML NAS; +LACTATED RINGER'S 1,000 ML IV SCH
[2024-11-26] MEDS ORDERED: LIDOCAINE 1% W/ EPI 1:100,000 20 ML MDV ONE (06:50)
[2024-11-26 06:54] VITALS: BP 135/84
[2024-11-26] MEDS ORDERED: IBLOOD GLUCOSE TEST STRIP 1 EA TEST VI PRN ×2 (07:00→09:15)
[2024-11-26] MEDS ORDERED: CEFAZOLIN SODIUM 2 GM/20 ML SYR IV SCH (07:00)
[2024-11-26] MEDS ORDERED: OXYMETAZOLINE HCL 30 ML BTL NAS SCH (08:00)
[2024-11-26] MEDS ORDERED: ROCURONIUM BROMIDE 50 MG/5 ML SYR ONE (09:05)
[2024-11-26] MEDS ORDERED: propofoL 200 MG/20 ML VIAL ONE ×2 (09:05→09:18)
[2024-11-26] MEDS ORDERED: DEXAMETHASONE SOD PHOS 4 MG/ML VIAL ONE (09:05)
[2024-11-26] MEDS ORDERED: fentaNYL citrate 100 MCG/2 ML VIAL ONE (09:05)
[2024-11-26] MEDS ORDERED: ondansetron HCL 4 MG/2 ML VIAL ONE (09:05)
[2024-11-26] MEDS ORDERED: ACETAMINOPHEN 1,000 MG/100 ML VIAL ONE (09:05)
[2024-11-26] MEDS ORDERED: KETOROLAC TROMETHAMINE 30 MG/ML VIAL IV PRN (09:15)
[2024-11-26] MEDS ORDERED: droPERidol 5 MG/2 ML VIAL IV PRN (09:15)
[2024-11-26] MEDS ORDERED: ondansetron HCL 4 MG/2 ML VIAL IV PRN (09:15)
[2024-11-26] MEDS ORDERED: fentaNYL citrate 50 MCG/ML SDV IV PRN (09:15)
[2024-11-26] MEDS ORDERED: NALOXONE HCL 0.4 MG SYR IV PRN (09:15)
[2024-11-26] MEDS ORDERED: SUGAMMADEX SODIUM 200 MG/2 ML ML ONE (09:39)
--- NOTE | 2024-11-26 10:03 | NUR ---
11/26/24 Wm3 Izabella Ramey 0951 PT TO PACU AWAKE, DENIES PAIN AND NAUSEA. PT FALLS BACK TO SLEEP WHEN NOT STIMULATED.
[2024-11-26] MEDS ORDERED: HYDROCODONE/ACETA 5/325 TAB PO PRN (10:30)
[2024-11-26 10:44] VITALS: BP 136/89
--- NOTE | 2024-11-26 10:52 | NUR ---
1040- PATIENT ARRIVES BACK TO DAY SURGERY ROOM 4. AND DAUGHTER AT BEDSIDE. PATIENT ALERT AND ORIENTED. PAIN IS A 6/10. PATIENT REQUESTS COFFEE. COFFEE AND JELLO GIVE. SURGICAL DRESSING CLEAN, DRY AND INTACT. PACKING IN PLACE. GAVE PERSCIRPTION TO URGENT CARE NURSE PRACTITIONER. CALL LIGHT WITHIN REACH. NO FUTHER NEEDS.
--- NOTE | 2024-11-26 11:34 | NUR ---
1115 PATIENT COMPLAINING OF 6/10 PAIN. PATIENT REQUESTING PAIN MEDICINE. PRN MEDICINE GIVEN PER EMAR. PATIENT AMBULTED TO THE RESTROOM. AMBULATED BACK TO BED. IVF SALINE LOCKED. PATIENT ABLE TO EAT AND DRINK DENIES NAUSEA. NO FUTHER CM NEEDS.
[2024-11-26 11:47] VITALS: BP 131/76
--- NOTE | 2024-11-26 11:56 | OR ---
[facility] [address] [place], [place] [address] Signed DATE OF OPERATION: 11/26/2024 SURGEON: Adam Duarte MD PREOPERATIVE DIAGNOSIS: Nasal obstruction due to septal deformity, inferior turbinate hypertrophy. POSTOPERATIVE DIAGNOSIS: Nasal obstruction due to septal deformity, inferior turbinate hypertrophy. PROCEDURE: Septoplasty cautery bilateral inferior turbinates. ANESTHESIA: General orotracheal; BACK STAYER, Tony. 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 This has been unresponsive to appropriate medications. He is taken to the operating room for the above-mentioned procedures. OPERATIVE PROCEDURE AND FINDINGS: After informed consent, the patient was taken to the operating room, placed in supine position where general orotracheal anesthesia was induced. The patient and procedure were verified. The patient was repositioned. The patient received preoperative intravenous Ancef and intranasal oxymetazoline. Headlight speculum exam of the nasal cavity showed good decongestion of the inferior turbinates. The septum was deviated with a spur inferiorly anteriorly on the left and posteriorly midportion on the right. 0.25% Marcaine with epinephrine was injected in the septal mucosa. All deviated septal bone and cartilage was then removed with the Tom. The airway was improved. Less impingement on the inferior turbinates. Minimal bleeding stopped afterwards. The inferior turbinates were then cauterized with a long handle needle point cautery. Multiple transmucosal passes starting on the left inferior turbinate. Submucosal cautery on the medial and inferior surface extending anteriorly all the way back posteriorly. Excellent shrinkage in reduction in size of the inferior turbinate was obtained in this manner. Hemostasis verified. The same procedure on the right inferior turbinate. Packing was then placed, one piece of Merocel trimmed. Equal amount, coated with Neosporin one piece each side tied anteriorly over a pad. The pharynx was suctioned clear of blood and secretions. The patient was then awakened, extubated, Electronically Signed By: DAAM DUARTE MD 11/26/24 1156 PATIENT NAME: ELIOT HYDE OPERATIVE REPORT DATE OF : [birth year] REPORT #: [id number] PHYSICIAN: ADAM DUARTE MD PCP: DOT LÓPEZ PA-C REPORT IS CONFIDENTIAL AND NOT TO BE RELEASED WITHOUT AUTHORIZATION [facility] [address] [place] [address] [place] [address] Signed transported to recovery room in good condition. No complications. BLOOD LOSS: Minimal. SPECIMEN: None. DRAINS: None. PACKING: One piece of Merocel to each nostril. Adam Duarte MD GC/HAROON /[id number] Copies: ~ Electronically Signed By: ADAM DUARTE MD 11/26/24 1156 PATIENT NAME: ELIOT HYDE OPERATIVE REPORT DATE OF : [birth year] REPORT #: [id number] PHYSICIAN: ADAM DUARTE MD PCP: DOT LÓPEZ PA-C REPORT IS CONFIDENTIAL AND NOT TO BE RELEASED WITHOUT AUTHORIZATION
--- NOTE | 2024-11-26 12:01 | NUR ---
1140- PATIENT PAIN HAS DECREASED TO A 2/10 TOLERABLE. PATIENT DENIES ANY NAUSEA OR VOMITING. PATIENT SURGICAL DRIP PAD HAS A SMALL AMOUNT OF RED DRAINAGE. 1159- DISCHARGE INSTRUCTIONS GIVEN. PATIENT DRESSED SELF AND TOLERATED IT WELL. IN PRIVATE AUTO AT THE FRONT OF THE HOSPITAL. IV D/C'D WNL. PATIENT WHEELED OUT TO . NO FUTHER NEEDS OR QUESTIONS.
[2024-11-26] MEDS ORDERED: SEVOFLURANE 250 ML BTL INH ONE (15:37)
== END 2024-11-26 11:54 | disposition home or self-care (01) ==
LOC: OPS 06:36 → DS 06:36 → OPS 08:30
PROVIDERS: ATTEND Otolaryngology
PROC: 09BM0ZZ Excision of Nasal Septum, Open Approach (ICD-10-PCS; principal; 2024-11-26 09:00)
DX: J34.3 Hypertrophy of nasal turbinates (principal); J34.2 Deviated nasal septum; J34.89 Other specified disorders of nose and nasal sinuses; Z88.5 Allergy status to narcotic agent
CPT/HCPCS: 00160; J0131; J0690; J1100; J1885; J2405; J2704; J3010; J3490; J7121